=== PATIENT | male | born 1975 | race Hispanic/Latino ===

== ENCOUNTER 2022-06-09 21:17 | Inpatient (IN) | payer MEDICARE ==
[~2022-06-09] VITALS: Ht 152.4 cm; Wt 42.2 kg
[2022-06-10 01:06] LABS: BASOPHILS % (AUTO) 0.5 % (0.0-5.0); EOSINOPHILS % (AUTO) 0.5 % (0.0-8.0); HEMATOCRIT 31.2 % (42-54); MEAN CORPUSCULAR HGB CONC 33.3 g/dL (32.0-36.0); MEAN CORPUSCULAR VOLUME 93.1 fL (79-99); MONOCYTES % (AUTO) 7.9 % (3.0-13.0); NEUTROPHILS % (AUTO) 48.6 % (40.0-77.0); PLATELET COUNT (AUTO) 284 K/uL (130-400); RED BLOOD CELL COUNT(AUTO) 3.35 MIL/uL (4.50-6.20); RED CELL DISTRIBUTION WIDTH 17.4 % (11.0-15.5); WHITE BLOOD COUNT (AUTO) 3.7 K/uL (4.8-10.8)
[2022-06-10 01:15] LABS: POTASSIUM 4.3 mmol/L (3.5-5.1)
[2022-06-10 01:20] LABS: ALBUMIN 2.1 g/dL (3.5-5.0); TOTAL PROTEIN, SERUM 5.8 g/dL (6.0-8.3)
[2022-06-10 01:43] LABS: APPEARANCE,URINE CLEAR (CLEAR); BILIRUBIN,URINE NEGATIVE (NEGATIVE); COLOR,URINE LIGHT-YELLOW (YELLOW); GLUCOSE, URINE (UA) NEGATIVE (NEGATIVE); KETONES,URINE NEGATIVE (NEGATIVE); LEUKOCYTE ESTERASE ,URINE 75 Leu/uL (NEGATIVE); NITRATE,URINE NEGATIVE (NEGATIVE); OCCULT BLOOD,URINE NEGATIVE (NEGATIVE); PH,URINE 7.5 (5.0-8.0); PROTEIN,URINE NEGATIVE (NEGATIVE); UROBILINOGEN,URINE 0.2 mg/dL (0.2-1.0)
[2022-06-10] MEDS ORDERED: AZITHROMYCIN 500MG+NS 250ML IVPB STA (02:20)
[2022-06-10] MEDS ORDERED: CEFTRIAXONE 1G VIAL IVP ONE (02:30)
[2022-06-10] MEDS ORDERED: MORPHINE 4 MG SYG IV PRN (03:00)
[2022-06-10] MEDS ORDERED: ONDANSETRON 4MG INJ IV PRN (03:00)
[2022-06-10] MEDS ORDERED: ACETAMINOPHEN 325 MG TAB PO PRN ×2 (03:00)
[2022-06-10] MEDS: CEFTRIAXONE 1G VIAL IV SCH (03:00)
[2022-06-10] MEDS ORDERED: MORPHINE 2 MG SYG IV PRN (03:00)
[2022-06-10] MEDS ORDERED: GUAIFENESIN-DM 200/20 MG 10 ML PO PRN (03:00)
[2022-06-10 03:21] LABS: % IRON SATURATION 15.8 % (30-44)
[2022-06-10] MEDS ORDERED: CEFTRIAXONE 1G VIAL ONE (03:43)
[2022-06-10] MEDS ORDERED: AZITHROMYCIN 500MG+NS 250ML 250 ML ONE (04:01)
[2022-06-10] MEDS: LACTATED RINGERS 1000ML 1,000 ML IV SCH (04:51)
[2022-06-10] MEDS ORDERED: SODIUM CHLORIDE 3% FOR INHALATION 4 ML/AMP VIAL.NEB IH ONE ×2 (06:50→18:45)
[2022-06-10] MEDS: ALBUTEROL 0.083% 2.5 MG/3 ML INH IH SCH ×3 (06:52→18:37)
[2022-06-10] MEDS: IPRATROPIUM 0.5 MG/2.5 ML INH IH SCH ×3 (06:52→18:37)
[2022-06-10] MEDS ORDERED: 0.9% NACL 500ML IV.SOLN 500 ML IV STA (08:30)
[2022-06-10] MEDS: BALSAM PERU TP SCH ×3 (09:00→20:51)
[2022-06-10] MEDS: CASTOR OIL TP SCH ×3 (09:00→20:51)
[2022-06-10] MEDS ORDERED: FAMOTIDINE 20MG TAB PO SCH (09:00)
[2022-06-10] MEDS ORDERED: FAMOTIDINE 20MG VIAL IV ONE ×2 (10:00→11:05)
[2022-06-10] MEDS ORDERED: ENOXAPARIN SODIUM 30 MG/0.3 ML SQ ONE (11:05)
[2022-06-10] MEDS: ENOXAPARIN SODIUM 30 MG/0.3 ML SQ SCH (11:07)
[2022-06-10] MEDS ORDERED: DEXTROSE 50%-WATER 50 ML DISP.SYRIN IV ONE ×2 (13:00→13:30)
[2022-06-10 15:59] LABS: THYROID STIMULATING HORMONE 4.77 uIU/mL (0.36-3.74)
[2022-06-10] MEDS ORDERED: HONEY 1 APPL/ML TUBE TP SCH (17:30)
[2022-06-10] MEDS ORDERED: IRON SUCROSE COMPLEX 500 MG in 0.9% NACL 250ML 250 ML IV SCH (19:00)
[2022-06-10 20:34] VITALS: BP 162/54
[2022-06-11 00:05] VITALS: BP 114/65
[2022-06-11] MEDS: ALBUTEROL 0.083% 2.5 MG/3 ML INH IH SCH ×5 (00:18→23:18)
[2022-06-11] MEDS: IPRATROPIUM 0.5 MG/2.5 ML INH IH SCH ×5 (00:18→23:18)
[2022-06-11] MEDS: CEFTRIAXONE 1G VIAL IV SCH (03:02)
[2022-06-11] MEDS: LACTATED RINGERS 1000ML 1,000 ML IV SCH (03:02)
[2022-06-11] MEDS: AZITHROMYCIN 500MG+NS 250ML 250 ML IV SCH (03:02)
[2022-06-11 04:15] VITALS: BP 114/60
[2022-06-11 06:03] LABS: BASOPHILS % (AUTO) 0.6 % (0.0-5.0); EOSINOPHILS % (AUTO) 0.4 % (0.0-8.0); HEMATOCRIT 31.7 % (42-54); LYMPHOCYTES % (AUTO) 22.9 % (21.0-51.0); MEAN CORPUSCULAR HEMOGLOBIN 30.5 pg (27.0-33.0); MEAN CORPUSCULAR HGB CONC 32.2 g/dL (32.0-36.0); MEAN CORPUSCULAR VOLUME 94.9 fL (79-99); MONOCYTES % (AUTO) 6.1 % (3.0-13.0); NEUTROPHILS % (AUTO) 69.2 % (40.0-77.0); PLATELET COUNT (AUTO) 293 K/uL (130-400); RED BLOOD CELL COUNT(AUTO) 3.34 MIL/uL (4.50-6.20); RED CELL DISTRIBUTION WIDTH 17.1 % (11.0-15.5); WHITE BLOOD COUNT (AUTO) 5.2 K/uL (4.8-10.8)
[2022-06-11] MEDS: LEVOTHYROXINE 25 MCG TABLET PO SCH (06:04)
[2022-06-11 06:20] LABS: CREATININE 0.8 mg/dL (0.5-1.5); MAGNESIUM 1.9 mg/dL (1.80-2.40); PHOSPHORUS 2.8 mg/dL (2.5-4.9); POTASSIUM 4.1 mmol/L (3.5-5.1)
[2022-06-11 07:20] VITALS: BP 124/89
[2022-06-11] MEDS: HONEY 1 APPL/ML TUBE TP SCH (08:41)
[2022-06-11] MEDS: ENOXAPARIN SODIUM 30 MG/0.3 ML SQ SCH (08:43)
[2022-06-11 11:40] VITALS: BP 103/69
[2022-06-11] MEDS ORDERED: HONE44PA TP (13:42)
[2022-06-11] MEDS ORDERED: DOXY100T2 PO (13:42)
[2022-06-11] MEDS ORDERED: HONEY 1 APPL/ML TUBE TP SCH (16:30)
[2022-06-11] MEDS ORDERED: DEXTROSE 50%-WATER 50 ML DISP.SYRIN IV ONE (18:38)
[2022-06-11] MEDS ORDERED: GLUCAGON 1MG KIT 1 MG ML IM PRN (20:00)
[2022-06-11 20:19] VITALS: BP 110/77
[2022-06-12 00:05] VITALS: BP 122/68
[2022-06-12] MEDS: AZITHROMYCIN 500MG+NS 250ML 250 ML IV SCH (02:14)
[2022-06-12] MEDS: CEFTRIAXONE 1G VIAL IV SCH (02:16)
[2022-06-12] MEDS: LACTATED RINGERS 1000ML 1,000 ML IV SCH (02:16)
[2022-06-12 03:56] VITALS: BP 119/81
[2022-06-12] MEDS: LEVOTHYROXINE 25 MCG TABLET PO SCH (06:30)
[2022-06-12] MEDS: IPRATROPIUM 0.5 MG/2.5 ML INH IH SCH ×4 (06:54→23:21)
[2022-06-12] MEDS: ALBUTEROL 0.083% 2.5 MG/3 ML INH IH SCH ×4 (06:54→23:21)
[2022-06-12 08:00] VITALS: BP 146/76
[2022-06-12] MEDS: ENOXAPARIN SODIUM 30 MG/0.3 ML SQ SCH (08:42)
[2022-06-12] MEDS: HONEY 1 APPL/ML TUBE TP SCH (08:43)
[2022-06-12 12:00] VITALS: BP 120/73
[2022-06-12 16:00] VITALS: BP 114/68
[2022-06-12] MEDS ORDERED: ALBUTEROL 0.042% 1.25MG/3ML IH ONE ×2 (19:02→19:03)
[2022-06-12] MEDS: HYDROXYZINE 25 MG TABLET PO SCH (19:41)
[2022-06-12] MEDS: TRAZODONE HCL 50 MG TAB PO SCH (19:46)
[2022-06-12 20:00] VITALS: BP 105/63
[2022-06-13] VITALS (7 sets, daily range): BP systolic 88–148; BP diastolic 41–90
[2022-06-13] MEDS: LACTATED RINGERS 1000ML 1,000 ML IV SCH (03:00)
[2022-06-13] MEDS: AZITHROMYCIN 500MG+NS 250ML 250 ML IV SCH (03:20)
[2022-06-13] MEDS: CEFTRIAXONE 1G VIAL IV SCH (03:20)
[2022-06-13 04:38] LABS: BASOPHILS % (AUTO) 0.4 % (0.0-5.0); EOSINOPHILS % (AUTO) 0.3 % (0.0-8.0); HEMATOCRIT 28.3 % (42-54); LYMPHOCYTES % (AUTO) 17.5 % (21.0-51.0); MEAN CORPUSCULAR HEMOGLOBIN 31.1 pg (27.0-33.0); MEAN CORPUSCULAR HGB CONC 33.9 g/dL (32.0-36.0); MEAN CORPUSCULAR VOLUME 91.6 fL (79-99); NEUTROPHILS % (AUTO) 76.4 % (40.0-77.0); PLATELET COUNT (AUTO) 278 K/uL (130-400); RED BLOOD CELL COUNT(AUTO) 3.09 MIL/uL (4.50-6.20); RED CELL DISTRIBUTION WIDTH 16.9 % (11.0-15.5); WHITE BLOOD COUNT (AUTO) 7.6 K/uL (4.8-10.8)
[2022-06-13 04:55] LABS: ALBUMIN 2.3 g/dL (3.5-5.0); CREATININE 0.7 mg/dL (0.5-1.5); MAGNESIUM 1.8 mg/dL (1.80-2.40); POTASSIUM 3.6 mmol/L (3.5-5.1); TOTAL PROTEIN, SERUM 5.9 g/dL (6.0-8.3)
[2022-06-13] MEDS: LEVOTHYROXINE 25 MCG TABLET PO SCH (06:03)
[2022-06-13] MEDS: DEXTROSE 50%-WATER 50 ML DISP.SYRIN IV PRN ×2 (06:03→11:30)
[2022-06-13] MEDS: IPRATROPIUM 0.5 MG/2.5 ML INH IH SCH ×4 (06:57→23:10)
[2022-06-13] MEDS: ALBUTEROL 0.083% 2.5 MG/3 ML INH IH SCH ×4 (06:57→23:10)
[2022-06-13] MEDS: HYDROXYZINE 25 MG TABLET PO SCH ×2 (08:52→21:44)
[2022-06-13] MEDS: ENOXAPARIN SODIUM 30 MG/0.3 ML SQ SCH (08:53)
[2022-06-13] MEDS ORDERED: ESLI800T PO (15:27)
[2022-06-13] MEDS ORDERED: ATOR40TA69 PEG (15:27)
[2022-06-13] MEDS ORDERED: LEVE1000 PEG (15:30)
[2022-06-13] MEDS ORDERED: MELA5CAP PEG (15:48)
[2022-06-13] MEDS ORDERED: MONT-39 PEG (15:49)
[2022-06-13] MEDS ORDERED: CLOT15C TP (15:51)
[2022-06-13] MEDS ORDERED: LEVE10006 PEG (15:52)
[2022-06-13] MEDS: **HM**(Melatonin 5 MG PO SCH (19:42)
[2022-06-13] MEDS: ESLICARBAZEPINE ACETATE 800 MG PO SCH (19:42)
[2022-06-13] MEDS: CLOTRIMAZOLE 30 GM CREAM.GM. TP SCH (21:44)
[2022-06-13] MEDS: LEVETIRACETAM 100 MG/ML 5 ML UDCUP PEG SCH (21:44)
[2022-06-13] MEDS: TRAZODONE HCL 50 MG TAB PO SCH (21:44)
[2022-06-13] MEDS: MONTELUKAST SODIUM 10 MG TAB PEG SCH (21:45)
[2022-06-14] MEDS: LACTATED RINGERS 1000ML 1,000 ML IV SCH (02:02)
[2022-06-14] MEDS: AZITHROMYCIN 500MG+NS 250ML 250 ML IV SCH (02:02)
[2022-06-14] MEDS: CEFTRIAXONE 1G VIAL IV SCH (02:02)
[2022-06-14 04:25] VITALS: BP 94/66
[2022-06-14] MEDS: LEVOTHYROXINE 25 MCG TABLET PO SCH (05:13)
[2022-06-14] MEDS: IPRATROPIUM 0.5 MG/2.5 ML INH IH SCH ×4 (06:49→23:41)
[2022-06-14] MEDS: ALBUTEROL 0.083% 2.5 MG/3 ML INH IH SCH ×4 (06:49→23:41)
[2022-06-14 08:00] VITALS: BP 130/80
[2022-06-14] MEDS: ESLICARBAZEPINE ACETATE 800 MG PO SCH ×2 (09:00→21:00)
[2022-06-14] MEDS: ENOXAPARIN SODIUM 30 MG/0.3 ML SQ SCH (10:02)
[2022-06-14] MEDS: ATORVASTATIN 40 MG TABLET PEG SCH (10:02)
[2022-06-14] MEDS: HYDROXYZINE 25 MG TABLET PO SCH ×2 (10:04→21:45)
[2022-06-14] MEDS: LEVETIRACETAM 100 MG/ML 5 ML UDCUP PEG SCH ×2 (10:04→22:31)
[2022-06-14 11:47] VITALS: BP 101/71
[2022-06-14 16:01] VITALS: BP 125/69
[2022-06-14] MEDS ORDERED: LACTULOSE 20 GM/30 ML UDCUP PO ONE (17:00)
[2022-06-14] MEDS: CLOTRIMAZOLE 30 GM CREAM.GM. TP SCH ×2 (17:11→22:31)
[2022-06-14 19:35] VITALS: BP 106/65
[2022-06-14] MEDS: **HM**(Melatonin 5 MG PO SCH (21:00)
[2022-06-14] MEDS: MONTELUKAST SODIUM 10 MG TAB PEG SCH (21:45)
[2022-06-14] MEDS: TRAZODONE HCL 50 MG TAB PO SCH (21:46)
[2022-06-15] VITALS (7 sets, daily range): BP systolic 101–135; BP diastolic 57–77
[2022-06-15] MEDS ORDERED: LACTULOSE 20 GM/30 ML UDCUP PO ONE ×2 (01:00→09:00)
[2022-06-15] MEDS: CEFTRIAXONE 1G VIAL IV SCH (03:52)
[2022-06-15] MEDS: AZITHROMYCIN 500MG+NS 250ML 250 ML IV SCH (03:53)
[2022-06-15] MEDS: LEVOTHYROXINE 25 MCG TABLET PO SCH (06:30)
[2022-06-15] MEDS: ALBUTEROL 0.083% 2.5 MG/3 ML INH IH SCH ×4 (07:33→23:26)
[2022-06-15] MEDS: IPRATROPIUM 0.5 MG/2.5 ML INH IH SCH ×4 (07:33→23:26)
[2022-06-15] MEDS: ESLICARBAZEPINE ACETATE 800 MG PO SCH ×2 (09:00→21:00)
[2022-06-15] MEDS: ENOXAPARIN SODIUM 30 MG/0.3 ML SQ SCH (09:16)
[2022-06-15] MEDS: LEVETIRACETAM 100 MG/ML 5 ML UDCUP PEG SCH ×2 (09:17→22:47)
[2022-06-15] MEDS: HYDROXYZINE 25 MG TABLET PO SCH ×2 (09:17→22:47)
[2022-06-15] MEDS: CLOTRIMAZOLE 30 GM CREAM.GM. TP SCH ×2 (09:18→22:48)
[2022-06-15] MEDS: ATORVASTATIN 40 MG TABLET PEG SCH (09:25)
[2022-06-15] MEDS ORDERED: IRON SUCROSE COMPLEX 500 MG in 0.9%NACL 50ML 50 ML IV SCH (11:30)
[2022-06-15] MEDS: **HM**(Melatonin 5 MG PO SCH (21:00)
[2022-06-15] MEDS: MONTELUKAST SODIUM 10 MG TAB PEG SCH (22:47)
[2022-06-15] MEDS: TRAZODONE HCL 50 MG TAB PO SCH (22:48)
[2022-06-16] MEDS: CEFTRIAXONE 1G VIAL IV SCH (03:03)
[2022-06-16 03:57] VITALS: BP 98/52
[2022-06-16 06:05] LABS: BASOPHILS % (AUTO) 0.6 % (0.0-5.0); EOSINOPHILS % (AUTO) 0.9 % (0.0-8.0); HEMATOCRIT 26.8 % (42-54); LYMPHOCYTES % (AUTO) 27.8 % (21.0-51.0); MEAN CORPUSCULAR HGB CONC 32.8 g/dL (32.0-36.0); MEAN CORPUSCULAR VOLUME 97.5 fL (79-99); MONOCYTES % (AUTO) 5.7 % (3.0-13.0); NEUTROPHILS % (AUTO) 64.5 % (40.0-77.0); PLATELET COUNT (AUTO) 258 K/uL (130-400); RED BLOOD CELL COUNT(AUTO) 2.75 MIL/uL (4.50-6.20); RED CELL DISTRIBUTION WIDTH 18.6 % (11.0-15.5); WHITE BLOOD COUNT (AUTO) 6.6 K/uL (4.8-10.8)
[2022-06-16 06:25] LABS: ALBUMIN 2.2 g/dL (3.5-5.0); CREATININE 0.7 mg/dL (0.5-1.5); MAGNESIUM 1.9 mg/dL (1.80-2.40); POTASSIUM 3.9 mmol/L (3.5-5.1); TOTAL PROTEIN, SERUM 5.6 g/dL (6.0-8.3)
[2022-06-16] MEDS: IPRATROPIUM 0.5 MG/2.5 ML INH IH SCH ×4 (06:37→23:39)
[2022-06-16] MEDS: ALBUTEROL 0.083% 2.5 MG/3 ML INH IH SCH ×4 (06:37→23:39)
[2022-06-16 07:50] VITALS: BP 105/59
[2022-06-16] MEDS: HYDROXYZINE 25 MG TABLET PO SCH ×2 (08:23→20:54)
[2022-06-16] MEDS: ENOXAPARIN SODIUM 30 MG/0.3 ML SQ SCH (08:23)
[2022-06-16] MEDS: ATORVASTATIN 40 MG TABLET PEG SCH (08:23)
[2022-06-16] MEDS: LEVETIRACETAM 100 MG/ML 5 ML UDCUP PEG SCH ×2 (08:23→20:54)
[2022-06-16] MEDS: CLOTRIMAZOLE 30 GM CREAM.GM. TP SCH ×2 (08:24→20:54)
[2022-06-16] MEDS: ESLICARBAZEPINE ACETATE 800 MG PO SCH ×2 (08:25→20:14)
[2022-06-16] MEDS ORDERED: EPOETIN ALFA-EPBX (NON-ESRD) 10,000 UNIT/ML VIAL SQ SCH (08:30)
[2022-06-16 11:50] VITALS: BP 100/57
[2022-06-16 17:30] VITALS: BP 137/78
[2022-06-16 20:00] VITALS: BP 137/72
[2022-06-16] MEDS: **HM**(Melatonin 5 MG PO SCH (20:14)
[2022-06-16] MEDS: TRAZODONE HCL 50 MG TAB PO SCH (20:54)
[2022-06-16] MEDS: MONTELUKAST SODIUM 10 MG TAB PEG SCH (20:54)
[2022-06-17] VITALS: BP 97/67
[2022-06-17] MEDS: CEFTRIAXONE 1G VIAL IV SCH (02:20)
[2022-06-17 04:00] VITALS: BP 116/73
[2022-06-17 05:01] LABS: BASOPHILS % (AUTO) 0.7 % (0.0-5.0); EOSINOPHILS % (AUTO) 2.4 % (0.0-8.0); HEMATOCRIT 26.1 % (42-54); LYMPHOCYTES % (AUTO) 33.3 % (21.0-51.0); MEAN CORPUSCULAR HEMOGLOBIN 31.7 pg (27.0-33.0); MEAN CORPUSCULAR HGB CONC 33.7 g/dL (32.0-36.0); MEAN CORPUSCULAR VOLUME 93.9 fL (79-99); MONOCYTES % (AUTO) 5.6 % (3.0-13.0); NEUTROPHILS % (AUTO) 57.8 % (40.0-77.0); PLATELET COUNT (AUTO) 257 K/uL (130-400); RED BLOOD CELL COUNT(AUTO) 2.78 MIL/uL (4.50-6.20); RED CELL DISTRIBUTION WIDTH 18.4 % (11.0-15.5); WHITE BLOOD COUNT (AUTO) 4.1 K/uL (4.8-10.8)
[2022-06-17 05:20] LABS: ALBUMIN 2.1 g/dL (3.5-5.0); CREATININE 0.6 mg/dL (0.5-1.5); MAGNESIUM 1.8 mg/dL (1.80-2.40); POTASSIUM 4.1 mmol/L (3.5-5.1); TOTAL PROTEIN, SERUM 5.7 g/dL (6.0-8.3)
[2022-06-17] MEDS: LEVOTHYROXINE 25 MCG TABLET PO SCH (06:13)
[2022-06-17] MEDS: DEXTROSE 50%-WATER 50 ML DISP.SYRIN IV PRN (06:40)
[2022-06-17] MEDS: IPRATROPIUM 0.5 MG/2.5 ML INH IH SCH (06:43)
[2022-06-17] MEDS: ALBUTEROL 0.083% 2.5 MG/3 ML INH IH SCH (06:43)
[2022-06-17 07:00] VITALS: BP 124/71
[2022-06-17] MEDS: ESLICARBAZEPINE ACETATE 800 MG PO SCH ×2 (09:00→20:03)
[2022-06-17] MEDS: ATORVASTATIN 40 MG TABLET PEG SCH (09:38)
[2022-06-17] MEDS: LEVETIRACETAM 100 MG/ML 5 ML UDCUP PEG SCH ×2 (09:38→20:03)
[2022-06-17] MEDS: ENOXAPARIN SODIUM 30 MG/0.3 ML SQ SCH (09:38)
[2022-06-17] MEDS: HYDROXYZINE 25 MG TABLET PO SCH ×2 (09:38→20:03)
[2022-06-17] MEDS: CLOTRIMAZOLE 30 GM CREAM.GM. TP SCH ×2 (09:39→20:03)
[2022-06-17 11:00] VITALS: BP 103/61
[2022-06-17 15:00] VITALS: BP 97/60
[2022-06-17] MEDS: TRAZODONE HCL 50 MG TAB PO SCH (20:03)
[2022-06-17] MEDS: MONTELUKAST SODIUM 10 MG TAB PEG SCH (20:03)
[2022-06-17] MEDS: **HM**(Melatonin 5 MG PO SCH (20:03)
[2022-06-17 20:23] VITALS: BP 109/71
[2022-06-18 00:06] VITALS: BP 90/46
[2022-06-18] MEDS: CEFTRIAXONE 1G VIAL IV SCH (03:57)
[2022-06-18 04:04] VITALS: BP 110/60
[2022-06-18] MEDS: DEXTROSE 50%-WATER 50 ML DISP.SYRIN IV PRN (06:05)
[2022-06-18] MEDS: LEVOTHYROXINE 25 MCG TABLET PO SCH (06:05)
[2022-06-18 08:00] VITALS: BP 95/62
[2022-06-18] MEDS: HYDROXYZINE 25 MG TABLET PO SCH (08:40)
[2022-06-18] MEDS: LEVETIRACETAM 100 MG/ML 5 ML UDCUP PEG SCH (08:41)
[2022-06-18] MEDS: ATORVASTATIN 40 MG TABLET PEG SCH (08:41)
[2022-06-18] MEDS: ESLICARBAZEPINE ACETATE 800 MG PO SCH (08:42)
[2022-06-18] MEDS: ENOXAPARIN SODIUM 30 MG/0.3 ML SQ SCH (08:42)
[2022-06-18 12:05] VITALS: BP 89/51
== END 2022-06-18 14:10 | DRG 177 ==
LOC: EDH 21:17 → EDHIP 06-10 02:36 → 4CH 06-10 19:57
PROVIDERS: ADMIT Internal Medicine; ATTEND Internal Medicine
DX: J69.0 Pneumonitis due to inhalation of food and vomit (principal); E43 Unspecified severe protein-calorie malnutrition; R53.2 Functional quadriplegia; N39.0 Urinary tract infection, site not specified; R64 Cachexia; Z68.1 Body mass index [BMI] 19.9 or less, adult; Z20.822 Contact with and (suspected) exposure to COVID-19; J15.9 Unspecified bacterial pneumonia; G40.909 Epilepsy, unspecified, not intractable, without status epilepticus; D70.9 Neutropenia, unspecified; D64.9 Anemia, unspecified; E61.1 Iron deficiency; E78.00 Pure hypercholesterolemia, unspecified; F32.A Depression, unspecified; R13.12 Dysphagia, oropharyngeal phase; Z79.899 Other long term (current) drug therapy; Z93.1 Gastrostomy status; Z91.81 History of falling
CPT/HCPCS: 36415; 70450; 71045; 74176; 80048; 80053; 81001; 82728; 82948; 83540; 83550; 83605; 83735; 84100; 84439; 84443; 84481; 85025; 87040; 87070; 87077; 87088; 87186; 87635; 87804; 93005; 94640; 94664; C9803; G0378; J0456; J0696; J1650; J1756; J3490; J7050; J7070; J7120

== ENCOUNTER 2022-10-06 21:47 | Emergency (ER) | payer MEDICARE ==
[~2022-10-06 21:47] MED LIST: ATOR40TA69 PEG; CLOT15C TP; ESLI800T PO; LEVE10006 PEG; MELA5CAP PEG; MONT-39 PEG
[2022-10-06 21:56] VITALS: BP 150/82
[2022-10-06] MEDS ORDERED: TETANUS/DIPHTHERIA TOXOID [ADULT] 0.5 ML VIAL IM ONE (23:00)
[2022-10-07] MEDS ORDERED: LORAZEPAM 2 MG/ML 1 ML VIAL ONE (00:09)
[2022-10-07] MEDS ORDERED: PENICILLIN G BENZATHINE LA 1.2 MILUNITS/2 ML SYG IM ONE (02:30)
== END 2022-10-07 04:30 | disposition home or self-care (01) ==
LOC: EDH 21:47
DX: S01.01XA Laceration without foreign body of scalp, initial encounter (principal); M19.90 Unspecified osteoarthritis, unspecified site; F32.A Depression, unspecified; K21.9 Gastro-esophageal reflux disease without esophagitis; E78.00 Pure hypercholesterolemia, unspecified; F84.0 Autistic disorder; W07.XXXA Fall from chair, initial encounter; Y93.89 Activity, other specified; Y92.89 Other specified places as the place of occurrence of the external cause; Y99.8 Other external cause status
CPT/HCPCS: 99285; 70450; 72125; 12002; 90714; 96372; 90471; J2060; J0561

== ENCOUNTER 2024-06-17 16:09 | Inpatient (IN) | payer MEDICARE ==
[~2024-06-17] VITALS: Ht 137.2 cm; Wt 39.9 kg
--- NOTE | 2024-06-17 16:26 | ERN ---
ED Note History of Present Illness Stated Complaint: ULCER Time Seen by MD: 16:10 Dictation: PATIENT IS A 48-YEAR-OLD DOWN SYNDROME PATIENT COMING FROM A LOCAL CARE HOME WITH A CAREGIVER. CAREGIVER HAD VERY LITTLE INFORMATION OTHER THAN SOME PAPERWORK FROM THE CARE HOME. I CALLED AND I SPOKE WITH JOHANA NORWOOD RN WHO IS ONLY THERE THURSDAY THROUGH THURSDAY. SHE STATES PATIENT HAS A DECUBITUS ULCER HE HAS HAD TO HIS SACRUM FOR SEVERAL WEEKS, HAS ALREADY BEEN TO [facility] AND WAS DISCHARGED HOME WITH ANTIBIOTICS AND MUPIROCIN. HE THEN SAW HIS PRIMARY CARE DOCTOR YESTERDAY WHO WAS GOING TO REFER HIM TO WOUND CARE HOWEVER DID NOT GET AROUND TO DOING THIS. TODAY THEY DECIDED TO SEND HIM TO [facility] FOR FURTHER EVALUATION HOPEFULLY ADMISSION AND WOUND CARE MANAGEMENT. PATIENT IS NOT ABLE TO PROVIDE ANY HISTORY. PER THE CAREGIVER PATIENT HAS HAD NO FEVER NO CHILLS NO NAUSEA VOMITING. Allergies: Coded Allergies: No Known Drug Allergies (Unverified Allergy, Unknown, 06/10/22) Home Meds Reported Medications Levetiracetam (Levetiracetam) 1,000 Mg Tablet, 1500 MG PEG BID, TAB 06/13/22 Clotrimazole (Lotrimin 1% Cream) 1 Appl/Gm Crm, 1 APPL TP BID, APPL 06/13/22 Montelukast Sodium (Montelukast Sodium) 10 Mg Tablet, 10 MG PEG HS, TAB 06/13/22 Melatonin (Melatonin) 5 Mg Capsule, 5 MG PEG HS, CAP 06/13/22 Atorvastatin Calcium (LIPITOR) 40 Mg Tablet, 40 MG PEG ACBKFST, TAB 06/13/22 Eslicarbazepine Acetate (Aptiom) 800 Mg Tablet, 800 MG PO BID, TAB 06/13/22 Past Medical History Past Medical History: Arthritis, Depression, GERD, High Cholesterol, Prostatitis, Seizure, Other Additional Past Medical Hx: ATAXIA, IDD, DOWN SYN, AUTISM, CATARACTS Surgical History: Other Surgical History Other: EYES RN Note Reviewed/Agreed w/PFSH: Yes Review of System Dictation CONSTITUTIONAL: NEGATIVE EXCEPT FOR HPI HEAD/FACE: NEGATIVE EXCEPT FOR HPI EENT: NEGATIVE EXCEPT FOR HPI RESPIRATORY: NEGATIVE EXCEPT FOR HPI GASTROINTESTINAL/ABDOMINAL: NEGATIVE EXCEPT FOR HPI GENITOURINARY: NEGATIVE EXCEPT FOR HPI MUSCULOSKELETAL: NEGATIVE EXCEPT FOR HPI INTEGUMENTARY: NEGATIVE EXCEPT FOR HPI SACRAL DECUBITUS NEUROLOGICAL/PSYCH: NEGATIVE EXCEPT FOR HPI DOWN SYNDROME, UNABLE TO PROVIDE ANY HISTORY HEMATOLOGIC/LYMPHATIC: NEGATIVE EXCEPT FOR HPI ALL SYSTEMS NEGATIVE, EXCEPT NOTED ABOVE. 13 POINT REVIEW OF SYSTEMS ASSESSED AND ALL NEGATIVE EXCEPT FOR ABOVE. Initial Vital Sign VS Vital Signs Date Time Temp Pulse Resp B/P (MAP) Pulse Ox O2 Delivery O2 Flow Rate FiO2 06/17/24 16:36 97.9 56 18 161/101 96 Room Air 0 Physical Exam Dictation VITAL SIGNS REVIEWED GENERAL APPEARANCE: ALERT, UNABLE TO PROVIDE HISTORY AND IS NONVERBAL. HEAD AND FACE: NON-TRAUMATIC. EYES: PERRL, PINK CONJUNCTIVAS, EYELID NO TRAUMA, ANTERIOR CHAMBER WITH ARCUS SENILIS. EARS: PINNAS INTACT AND NO SIGNS OF TRAUMA OR ERYTHEMA EAR CANALS CLEAR AND NO DISCHARGE TM NO ERYTHEMA NOSE: NO DISCHARGE, NO BLEEDING. OROPHARYNX: MOUTH NORMAL, TONGUE PINK, PHARYNX CLEAR,NO ERYTHEMA, TONSILS NO EXUDATES, NO ABSCESSES NOTED, MUCOUS MEMBRANE MOIST NECK: SUPPLE, NON-TENDER, NO THYROMEGALY, NO MASSES, NO JVD, NO BRUITS BREAST:DEFERRED CHEST:NO TENDERNESS, NO CREPITUS, NO PARADOXICAL MOVEMENT, NO RETRACTIONS LUNGS:CLEAR, WELL-VENTILATED, SYMMETRIC, NO RALES, NO WHEEZING, NO RHONCHI, NO STRIDOR, GOOD BREATH SOUNDS BILATERALLY HEART: REGULAR RATE, REGULAR RHYTHM, NO MURMUR, NO GALLOPS VASCULAR: NO PERIPHERAL EDEMA, ABDOMEN: SOFT, POSITIVE BOWEL SOUNDS, NONDISTENDED, NO GUARDING, NONTENDER, NO REBOUND, NO MASSES NO HEPATOMEGALY, NO SPLENOMEGALY, NO LEOS'S SIGN, NO HERNIAS. PEG TUBE IN PLACE RECTAL: DEFERRED GENITAL: DEFERRED NEUROLOGICAL: PATIENT IS MAXIMUM ASSIST WITH THE ADLS. NONVERBAL MUSCULOSKELETAL: NECK NONTENDER, FULL RANGE OF MOTION, BACK NONTENDER, FULL RANGE OF MOTION, EXTREMITIES: CONTRACTURES NOTED TO BUY LOWER LOWER EXTREMITIES. SKIN: COLOR PINK, DRY, 2 X 3 CM STATES TO DECUBITUS TO LEFT GLUTEUS DRY WOUND BED. CULTURES WERE OBTAINED LYMPHATIC: DEFERRED Results (Laboratory/Radiology) Laboratory/Radiology Laboratory Tests Test 06/17/24 16:58 White Blood Count 3.7 K/uL (4.8-10.8) L Red Blood Count 3.67 MIL/uL (4.50-6.20) L Hemoglobin 11.9 g/dL (14.0-18.0) L Hematocrit 35.0 % (42-54) L Mean Corpuscular Volume 95.4 fL (79-99) Mean Corpuscular Hemoglobin 32.4 pg (27.0-33.0) Mean Corpuscular Hemoglobin Concent 34.0 g/dL (32.0-36.0) Red Cell Distribution Width 15.4 % (11.0-15.5) Platelet Count 290 K/uL (130-400) Mean Platelet Volume 9.9 fL (7.5-10.5) Immature Granulocyte % (Auto) 0.3 % (0-1) Neutrophils (%) (Auto) 30.9 % (40.0-77.0) L Lymphocytes (%) (Auto) 54.9 % (21.0-51.0) H Monocytes (%) (Auto) 9.0 % (3.0-13.0) Eosinophils (%) (Auto) 4.1 % (0.0-8.0) Basophils (%) (Auto) 0.8 % (0.0-5.0) Neutrophils # (Auto) 1.1 K/uL (1.8-7.7) L Lymphocytes # (Auto) 2.0 K/uL (1.0-4.8) Monocytes # (Auto) 0.3 K/uL (0.1-1.0) Eosinophils # (Auto) 0.15 K/uL (0.00-0.70) Basophils # (Auto) 0.03 K/uL (0.00-0.20) Absolute Immature Granulocyte (auto 0.01 K/uL (0-1) Nucleated Red Blood Cells 0.0 % (0.0-0.19) Sodium Level 122 mmol/L (136-145) L Potassium Level 3.5 mmol/L (3.5-5.1) Chloride Level 87 mmol/L (101-111) *L Carbon Dioxide Level 32 mmol/L (21-32) Blood Urea Nitrogen 13 mg/dL (7-18) Creatinine 0.7 mg/dL (0.5-1.3) Glomerular Filtration Rate Calc 113 mL/min (>90) Random Glucose 93 mg/dL (70-105) Lactic Acid Level 1.4 mmol/L (0.8-2.5) Total Calcium 8.8 mg/dL (8.5-10.1) Labs Reviewed?: Yes ED Course ED Course Orders Procedure Category Date Status Time Blood Cult JOVITA 06/17/24 In Process 16:22 Lactic Acid LAB 06/17/24 Complete 16:22 Aerobic Culture JOVITA 06/17/24 In Process 16:22 Cbc With Differential LAB 06/17/24 Complete 16:22 Urinalysis Profile LAB 06/17/24 In Process 16:22 Basic Metabolic Panel LAB 06/17/24 Complete 16:22 0.9%Nacl 1000ml (Ns PHA 06/17/24 Complete 1000ml) 18:30 Straight Cath If No CPOE 06/17/24 Transmitted Void X6hrs 18:10 Admit Orders ADM 06/17/24 Transmitted 18:26 Edm Admit Bridge Order ADM 06/17/24 Transmitted 18:26 Current Medications Medications (Trade) Dose Ordered Sig/Werner Route PRN Reason Start Time Stop Time Status Last Admin Dose Admin Sodium Chloride 1,000 ml @ 0 mls/hr ONCE ONCE IV 06/17/24 18:30 06/17/24 18:31 DC Vital Signs Date Time Temp Pulse Resp B/P (MAP) Pulse Ox O2 Delivery O2 Flow Rate FiO2 06/17/24 16:36 97.9 56 18 161/101 96 Room Air 0 1810/PATIENT IS CHLORIDE OF 87 WITH A SODIUM OF 122. HE WILL BE ADMITTED FOR STAGE II ULCER TO LEFT GLUTEUS, SEVERE DEHYDRATION AND HYPONATREMIA, FAILURE TO THRIVE 1825/SPOKE WITH 1825/SPOKE WITH LEIGHA JONES SEISMIC COMPUTER HOSPITALIST REVIEWED PATIENT'S HISTORY TO INCLUDE DECUBITUS/HYPONATREMIA AND CHLORIDE HE AGREED TO ADMIT PATIENT TO THE HOSPITAL. Medical Decision Making MDM MDM: DIFFERENTIAL DIAGNOSIS: DECUBITUS ULCER/ELECTROLYTE IMBALANCE/DEHYDRATION/UTI/FAILURE THRIVE RATIONALE: TESTS CONSIDERED AND ORDERED SECONDARY TO SHARED DECISION MAKING INCLUDE: LABS, PREVIOUS OUTSIDE RECORDS REVIEWED: OLD ER VISITS. NONE RISK OF COMPLICATION AND/OR MORBIDITY OR MORTALITY OF PATIENT MANAGEMENT: NONE MEDICATIONS-PER MEDICATION RECONCILIATION NEED FOR HOSPITALIZATION: PATIENT DOES MEET CRITERIA FOR HOSPITALIZATION. PATIENT WILL BE ADMITTED FOR SEVERE DEHYDRATION HYPONATREMIA FAILURE TO THRIVE AND DECUBITUS ULCER LEFT GLUTEUS NEED FOR EMERGENCY MAJOR/MINOR SURGERY: NO THERE ARE NO SOCIAL CONCERNS WITH THIS PATIENT. PATIENT LIVES IN A CARE HOME, 100% MAX ASSIST WITH ADLS PRESCRIPTION DRUG MANAGEMENT PRESCRIPTIONS WILL INCLUDE SYMPTOMATIC CARE PATIENT'S PRIOR EXTERNAL MEDICAL RECORDS FROM OTHER ER VISITS WERE REVIEWED BY ME INDICATED. PRIOR TESTING AND RESULTS FROM PREVIOUS VISITS WERE REVIEWED. PRIOR TESTS WERE TAKEN INTO ACCOUNT WITH MEDICAL DECISION MAKING AND RESOURCE UTILIZATION, INDEPENDENT HISTORIAN/HISTORIANS WERE USED TO OBTAIN COMPLETE MEDICAL HISTORY. I INDEPENDENTLY INTERPRETED THE TEST THAT WERE PERFORMED, RESULTS WERE REVIEWED BY ME AND CONSIDERED FINDINGS ON RADIOLOGY IF ORDERED. MEDICAL MANAGEMENT AND EXAMINATION INTERPRETATION DISCUSSIONS WERE HAD BY ME WITH OTHER QUALIFIED HEALTHCARE PROFESSIONALS INDICATED FOR THE PATIENT'S CARE. DX & DISP Disposition: Inpatient Decision to Admit Time: 18:12 Departure Impression: Primary Impression: Stage II pressure ulcer of buttock Additional Impressions: Hyponatremia, Moderate dehydration, Chronic anemia Condition: Stable Referrals: SELF,REFERRAL (PCP) Time of Disposition: 18:12 I have reviewed the case, and I agree with, Diagnosis and Plan I performed a substantive portion of the visit. I have reviewed and personally made and approve the management plan that is documented in the notes by myself with MORIS/resident. I acknowledged full responsibility for the patient's management plan. BERNY BEARD NP Jun 17, 2024 16:25 LISA WYMAN DO Jun 17, 2024 18:34
[2024-06-17 17:13] LABS: BASOPHILS # (AUTO) 0.03 K/uL (0.00-0.20); BASOPHILS % (AUTO) 0.8 % (0.0-5.0); EOSINOPHILS # (AUTO) 0.15 K/uL (0.00-0.70); EOSINOPHILS % (AUTO) 4.1 % (0.0-8.0); IMMATURE GRANULOCYTE ABSOLUTE 0.01 K/uL (0-1); LYMPHOCYTES % (AUTO) 54.9 % (21.0-51.0); MEAN CORPUSCULAR HEMOGLOBIN 32.4 pg (27.0-33.0); MEAN CORPUSCULAR VOLUME 95.4 fL (79-99); MONOCYTES # (AUTO) 0.3 K/uL (0.1-1.0); NEUTROPHILS # (AUTO) 1.1 K/uL (1.8-7.7); NEUTROPHILS % (AUTO) 30.9 % (40.0-77.0); PLATELET COUNT (AUTO) 290 K/uL (130-400); RED BLOOD CELL COUNT(AUTO) 3.67 MIL/uL (4.50-6.20); RED CELL DISTRIBUTION WIDTH 15.4 % (11.0-15.5); WHITE BLOOD COUNT (AUTO) 3.7 K/uL (4.8-10.8)
[2024-06-17 17:20] LABS: CREATININE 0.7 mg/dL (0.5-1.3); POTASSIUM 3.5 mmol/L (3.5-5.1)
--- NOTE | 2024-06-17 18:17 | NUR ---
PT TAKES JEVITY 1.5 CAN THREE X A DAY PER PROVIDER FROM SNF.
[2024-06-17] MEDS: 0.9%NACL 1000ML 1,000 ML IV ONE (18:50)
[2024-06-17 19:14] LABS: APPEARANCE,URINE CLEAR (CLEAR); BILIRUBIN,URINE NEGATIVE (NEGATIVE); COLOR,URINE LIGHT-YELLOW (YELLOW); GLUCOSE, URINE (UA) NEGATIVE (NEGATIVE); KETONES,URINE NEGATIVE (NEGATIVE); LEUKOCYTE ESTERASE ,URINE NEGATIVE Leu/uL (NEGATIVE); NITRATE,URINE NEGATIVE (NEGATIVE); OCCULT BLOOD,URINE NEGATIVE (NEGATIVE); PH,URINE 7.5 (5.0-8.0); PROTEIN,URINE NEGATIVE (NEGATIVE); UROBILINOGEN,URINE 0.2 mg/dL (0.2-1.0)
[2024-06-17 19:19] LABS: ADD UA MICROSCOPIC NO
[2024-06-17] MEDS ORDERED: SENN-180 PO (19:48)
[2024-06-17] MEDS ORDERED: HYDR-3421 PO (19:48)
[2024-06-17] MEDS ORDERED: LINA145C PO (19:48)
[2024-06-17] MEDS ORDERED: MELA5TAB66 PO (19:48)
[2024-06-17] MEDS ORDERED: CLOT15CR23 TP (19:48)
[2024-06-17] MEDS ORDERED: MONT-47 PO (19:48)
[2024-06-17] MEDS ORDERED: TRAZ-185 PO (19:48)
[2024-06-17] MEDS ORDERED: SODI100037 PO (19:48)
[2024-06-17] MEDS ORDERED: TAMS-1 PO (19:48)
[2024-06-17] MEDS ORDERED: FOLI1 PO (19:48)
[2024-06-17] MEDS ORDERED: ESLI400T PO (19:48)
[2024-06-17] MEDS ORDERED: ALEN70TA80 PO (19:48)
[2024-06-17] MEDS ORDERED: PANT40TA54 PO (19:48)
[2024-06-17] MEDS ORDERED: CETI10TA57 PO (19:48)
[2024-06-17] MEDS ORDERED: MUPI15CR12 TP (19:48)
[2024-06-17] MEDS ORDERED: LEVO50CA4 PO (19:48)
[2024-06-17] MEDS ORDERED: ATOR40TA69 PO (19:48)
[2024-06-17] MEDS ORDERED: GLYC2TAB21 PO (19:48)
[2024-06-17] MEDS ORDERED: LEVE100S7 PO (19:48)
[2024-06-17] MEDS ORDERED: CYAN-106 PO (19:48)
[2024-06-17] MEDS ORDERED: CALC-1009 PO (19:48)
--- NOTE | 2024-06-17 20:01 | HP ---
History of Present Illness Reason for Visit: wound History of Present Illness PATIENT IS A 48-YEAR-OLD DOWN SYNDROME PATIENT COMING FROM A LOCAL [facility] WITH A CAREGIVER. CAREGIVER HAD VERY LITTLE INFORMATION OTHER THAN SOME PAPERWORK FROM THE PENITENTIARY. I CALLED AND I SPOKE WITH JOHANA NORWOOD RN WHO IS ONLY THERE THURSDAY THROUGH THURSDAY. SHE STATES PATIENT HAS A DECUBITUS ULCER HE HAS HAD TO HIS SACRUM FOR SEVERAL WEEKS, HAS ALREADY BEEN TO [facility] AND WAS DISCHARGED HOME WITH ANTIBIOTICS AND MUPIROCIN. HE THEN SAW HIS PRIMARY CARE DOCTOR YESTERDAY WHO WAS GOING TO REFER HIM TO WOUND CARE HOWEVER DID NOT GET AROUND TO DOING THIS. TODAY THEY DECIDED TO SEND HIM TO [facility] FOR FURTHER EVALUATION HOPEFULLY ADMISSION AND WOUND CARE MANAGEMENT. PATIENT IS NOT ABLE TO PROVIDE ANY HISTORY. PER THE CAREGIVER PATIENT HAS HAD NO FEVER NO CHILLS NO NAUSEA VOMITING. Past Medical History ADDITIONAL PAST MEDICAL HISTORY: [Unable to obtain] SOCIAL HISTORY: [Negative for smoking, alcohol use, drug use.] SURGICAL HISTORY: [Unable to obtain] Review of Systems General: No Fever, No Chills, No Night Sweats, No Fatigue, No Malaise, No Appetite, No Other HEENT: No Head Aches, No Visual Changes, No Eye Pain, No Ear Pain, No Dysphasia, No Sinus Congestion, No Post Nasal Drip, No Sore Throat, No Other Pulmonary: No Dyspnea, No Cough, No Pleuritic Chest Pain, No Other Cardiovascular: No: Chest Pain, Palpitations, Orthopnea, Paroxysmal Noc. Dyspnea, Edema, Lt Headedness, Other Gastrointestinal: No: Nausea, Vomiting, Abdominal Pain, Diarrhea, Constipation, Melena, Hematochezia, Other Genitourinary: No Dysuria, No Frequency, No Incontinence, No Hematuria, No Retention, No Other Musculoskeletal: No: other, neck pain, shoulder pain, arm pain, back pain, hand pain, leg pain, foot pain Skin: No Urticaria, No Rash; Other (Sacral wound) Neurological: No: Weakness, Numbness, Incoordination, Change in speech, Confusion, Seizures, Other Allergies: Coded Allergies: No Known Drug Allergies (Unverified Allergy, Unknown, 06/10/22) Scheduled Alendronate Sodium (Alendronate Sodium), 1 TAB PO QWEEK, (Reported) Atorvastatin Calcium (Lipitor), 40 MG PEG ACBKFST, (Reported) Atorvastatin Calcium (Lipitor), 1 TAB PO DAILY, (Reported) Calcium Carb & Cit/Vitamin D3 (Calcium + D3 ER Tablet), 1 EACH PO DAILY, (Reported) Cetirizine HCl (Cetirizine HCl), 1 TAB PO DAILY, (Reported) Clotrimazole (Lotrimin 1% Cream), 1 APPL TP BID, (Reported) Clotrimazole (Clotrimazole), 1 APPL TP BID, (Reported) Cyanocobalamin (Vitamin B-12) (Vitamin B12), 1,000 MCG PO DAILY, (Reported) Eslicarbazepine Acetate (Aptiom), 800 MG PO BID, (Reported) Eslicarbazepine Acetate (Aptiom), 1 TAB PO BID, (Reported) Folic Acid (Folvite), 1 TAB PO DAILY, (Reported) Glycopyrrolate (Glycopyrrolate), 1 TAB PO DAILY, (Reported) Hydroxyzine HCl (Hydroxyzine HCl), 1 TAB PO TID, (Reported) Levetiracetam (Levetiracetam), 1,500 MG PEG BID, (Reported) Levetiracetam (Keppra), 15 ML PO BID, (Reported) Levothyroxine Sodium (Levothyroxine), 1 CAP PO DAILY, (Reported) Linaclotide (Linzess), 1 CAP PO DAILY, (Reported) Melatonin (Melatonin), 5 MG PEG HS, (Reported) Melatonin (Melatonin), 5 MG PO HS, (Reported) Montelukast Sodium (Montelukast Sodium), 10 MG PEG HS, (Reported) Montelukast Sodium (Singulair), 10 MG PO HS, (Reported) Mupirocin Calcium (Mupirocin), 1 APPL TP TID, (Reported) Pantoprazole Sodium (Pantoprazole Sodium), 1 TAB PO DAILY, (Reported) Sennosides/Docusate Sodium (Senna-Time S Tablet), 1 EACH PO DAILY, (Reported) Sodium Chloride (Sodium Chloride), 2 TAB PO BID, (Reported) Tamsulosin HCl (Flomax), 0.4 MG PO HS, (Reported) Trazodone HCl (Trazodone HCl), 1 TAB PO HS, (Reported) Exam Vital Signs Vital Signs Date Time Temp Pulse Resp B/P (MAP) Pulse Ox O2 Delivery O2 Flow Rate FiO2 06/17/24 19:33 55 16 161/64 97 Room Air* 0 21 06/17/24 18:44 97.3 General Appearance: Alert HEENT: Atraumatic Respiratory: Clear to auscultation, Normal air movement, NL respiratory effort Cardiovascular: Normal S1, Normal S2, Other (Bradycardia) Abdominal: Normal bowel sounds, Soft, No tenderness, Other (Positive PEG tube) Extremities: No edema Skin: Other (Positive sacral wound) Neuro: Other (Unable to assess) Psych/Mental Status: Other (Unable to assess) Assessment/Plan ASSESSMENT: [ Hyponatremia, POA Sacral wound, POA] PLAN: [ Admit patient to medical floor as inpatient status. Place patient on telemetry monitoring. 0.9% NS at 75 mL/HR. Monitor patient's labs. Consult Wound Care Service for evaluation recommendations. For now wet-to-dry dressings. Consider resuming home medications once they are reconciled. Administer medications per PEG tube. GI prophylaxis, famotidine DVT prophylaxis, Lovenox This document was generated in part using voice recognition software, occasional wrong word or sound alike substitutions may have occurred due to the inherent limitations of voice recognition software. Read the chart carefully and recognize using context, where the substitutions have occurred. Although every effort was made to edit the content, animal park code enforcement officer and typing errors may occur ADDENDUM: ATTENDING PHYSICIAN ATTESTATION: I have seen and discussed this patient with the midlevel and I agree with their plan. See my addendum for updates to the medical plan MD KAREN Dixon JOE D ACID MIXER Jun 17, 2024 20:01 CAILIN KILLIAN MD Jun 18, 2024 12:25
[2024-06-17] MEDS ORDERED: hydrALAZine 20MG/ML VIAL IV PRN (20:30)
[2024-06-17] MEDS ORDERED: ondanSETRON 4MG INJ IV PRN (20:30)
[2024-06-17] MEDS ORDERED: acetaMINOPHEN 325 MG TAB PO PRN (20:30)
[2024-06-17] MEDS ORDERED: morPHINE 2 MG SYG IVP PRN (21:00)
[2024-06-17] MEDS: 0.9%NACL 1000ML 1,000 ML IV SCH (21:00)
[2024-06-17 21:13] LABS: CREATININE,URINE RANDOM 18.33 mg/dL (30-135)
[2024-06-17 21:15] VITALS: BP 164/92; PULSE 57; RESP 20; TEMP 97.5; O2SAT 96
[2024-06-17] MEDS: FAMOTIDINE 20MG TAB PO SCH (23:08)
[2024-06-17] MEDS: leveTIRACEtam 100 MG/ML 5 ML UDCUP PO SCH (23:29)
[2024-06-18] VITALS (7 sets, daily range): BP systolic 127–155; BP diastolic 72–87; PULSE 60–79; RESP 16–20; TEMP 97.2–98.1; O2SAT 96–98
[2024-06-18 05:18] LABS: BASOPHILS # (AUTO) 0.03 K/uL (0.00-0.20); BASOPHILS % (AUTO) 0.8 % (0.0-5.0); EOSINOPHILS % (AUTO) 2.7 % (0.0-8.0); HEMATOCRIT 34.2 % (42-54); IMMATURE GRANULOCYTE ABSOLUTE 0.01 K/uL (0-1); LYMPHOCYTES # (AUTO) 1.7 K/uL (1.0-4.8); MEAN CORPUSCULAR HEMOGLOBIN 32.5 pg (27.0-33.0); MEAN CORPUSCULAR HGB CONC 34.8 g/dL (32.0-36.0); MEAN CORPUSCULAR VOLUME 93.4 fL (79-99); MONOCYTES # (AUTO) 0.3 K/uL (0.1-1.0); NEUTROPHILS # (AUTO) 1.5 K/uL (1.8-7.7); NEUTROPHILS % (AUTO) 41.2 % (40.0-77.0); PLATELET COUNT (AUTO) 301 K/uL (130-400); RED BLOOD CELL COUNT(AUTO) 3.66 MIL/uL (4.50-6.20); RED CELL DISTRIBUTION WIDTH 15.1 % (11.0-15.5); WHITE BLOOD COUNT (AUTO) 3.7 K/uL (4.8-10.8)
[2024-06-18 05:37] LABS: CREATININE 0.6 mg/dL (0.5-1.3); PHOSPHORUS 3.9 mg/dL (2.5-4.9); POTASSIUM 3.9 mmol/L (3.5-5.1)
--- NOTE | 2024-06-18 06:19 | NUR ---
low bs bs 69, apple juice with 1 teaspoon sugar given via gt, flushed, tolerated well Addendum: 06/18/24 at 0620 by AMBER BRANHAM RN RN Amended: Links added.
[2024-06-18] MEDS: (Linaclotide (Linzess) 1 CAP) PO SCH (09:00)
[2024-06-18] MEDS: (Calcium Carb & Cit/Vitamin D3 (Calcium + D3 ER Tablet) PO SCH (09:00)
[2024-06-18] MEDS: ceTIRIzine HCL 5 MG TABLET PO SCH (09:04)
[2024-06-18] MEDS: FOLic ACID 1 MG TABLET PO SCH (09:04)
[2024-06-18] MEDS: atorVAStatin 40 MG TABLET PO SCH (09:04)
[2024-06-18] MEDS: hydrOXYzine 25 MG TABLET PO SCH (09:06)
[2024-06-18] MEDS: MUPIROCIN OINTMENT 22 GM TUBE TP SCH (10:06)
--- NOTE | 2024-06-18 12:19 | PN ---
[facility] PROGRESS NOTE Date of Service: Jun 18, 2024 Time of Service: 12:11 SUBJECTIVE: 06/18 Pt seen at bedside, no acute events overnight. He is unable to participate in the medical interview as he is non-verbal. Continue with antibiotics and fluids. Wound care pending, will follow up with cultures. REVIEW OF SYSTEMS CONSTITUTIONAL: Denies fevers, chills, or night sweats. No unintentional weight loss reported. NEUROLOGICAL: Denies headache, amaurosis fugax, motor weakness, sensory deficit, vertigo/spinning sensation, gait abnormalities, or tremors. ENT: No hearing loss, otalgia, otorrhea, rhinitis, rhinorrhea, hoarseness, or sore throat. CARDIOVASCULAR: Denies any exertional angina, dyspnea on exertion, orthopnea, paroxysmal nocturnal dyspnea, palpitations, life-threatening arrhythmias, claudication. PULMONARY: Denies any shortness of breath, cough, phlegm/sputum, hemoptysis, pleuritic chest pain. SLEEP: Denies morning headaches, daytime somnolence or napping. Denies difficulty falling asleep, staying asleep, waking from sleep. Denies knowledge of snoring. GASTROINTESTINAL: Denies any type of dysphagia to either liquids or solids. Denies nausea, vomiting, pyrosis, early satiety, abdominal pain, diarrhea, constipation, or changes in stool consistency or caliber. Denies coffee-ground emesis, hematemesis, hematochezia, or melanotic stools. GENITOURINARY: Denies frequency, urgency, nocturia, hematuria or incontinence (Storage/Irritative symptoms.) Low urinary stream, straining to void, urinary intermittency or hesitancy, splitting of the voiding stream, terminal dribbling. ENDOCRINOLOGIC: Denies polyuria, polydipsia, polyphagia or heat/cold intolerances. HEMATOLOGIC: Denies thrombophilia/previous clots, or coagulopathy/bleeding diso rders. ONCOLOGIC: Denies personal history of malignancy. DERMATOLOGIC: Denies rashes or pruritus. PSYCHIATRIC: Denies any suicidal or homicidal ideation. Denies hallucinations. PHYSICAL EXAM GENERAL APPEARANCE: The patient is awake, alert, and oriented, in no acute cardiopulmonary distress. NEUROLOGICAL: Cranial nerves II-XII grossly intact. Motor is 5/5 in bilateral upper and lower extremities proximal to distal. No sensory deficits. HEENT: Face is symmetric. Pupils are equal and reactive. Extraocular movements are intact. NECK: Supple. No JVD. No thyromegaly. No submental, submandibular, pre- /postauricular, occipital or supraclavicular lymphadenopathy. CHEST: Normal chest expansion. No Telemetry. LUNGS: Absence of any rales, rhonchi or any wheezing. CARDIOVASCULAR: Regular. S1 and S2 normal. No appreciable rubs, murmurs or gallops. ABDOMEN: Soft, nontender, and nondistended. There is no rebound, voluntary guarding, or rigidity. : Deferred. No Daniels. EXTREMITIES: Non-edematous and not cyanotic. No clubbing. Good capillary r efill. SKIN: No skin breakdown. Vital Signs (last 8hr) Date Time Temp Pulse Resp B/P (MAP) Pulse Ox O2 Delivery O2 Flow Rate FiO2 06/18/24 08:00 98 Room Air* 0 21 06/18/24 08:00 97.3 70 16 141/76 98 Room Air 21 LABS: Laboratory: Test 06/18/24 11:49 06/18/24 04:54 06/17/24 18:14 06/17/24 16:58 Range/Units Whole Blood Glucose 90 70-110 MG/DL White Blood Count 3.7 L 4.8-10.8 K/uL Red Blood Count 3.66 L 4.50-6.20 MIL/uL Hemoglobin 11.9 L 14.0-18.0 g/dL Hematocrit 34.2 L 42-54 % Mean Corpuscular Volume 93.4 79-99 fL Mean Corpuscular Hemoglobin 32.5 27.0-33.0 pg Mean Corpuscular Hemoglobin Concent 34.8 32.0-36.0 g/dL Red Cell Distribution Width 15.1 11.0-15.5 % Platelet Count 301 130-400 K/uL Mean Platelet Volume 10.0 7.5-10.5 fL Immature Granulocyte % (Auto) 0.3 0-1 % Neutrophils (%) (Auto) 41.2 40.0-77.0 % Lymphocytes (%) (Auto) 46.0 21.0-51.0 % Monocytes (%) (Auto) 9.0 3.0-13.0 % Eosinophils (%) (Auto) 2.7 0.0-8.0 % Basophils (%) (Auto) 0.8 0.0-5.0 % Neutrophils # (Auto) 1.5 L 1.8-7.7 K/uL Lymphocytes # (Auto) 1.7 1.0-4.8 K/uL Monocytes # (Auto) 0.3 0.1-1.0 K/uL Eosinophils # (Auto) 0.10 0.00-0.70 K/uL Basophils # (Auto) 0.03 0.00-0.20 K/uL Absolute Immature Granulocyte (auto 0.01 0-1 K/uL Nucleated Red Blood Cells 0.0 0.0-0.19 % Sodium Level 125 L 136-145 mmol/L Potassium Level 3.9 3.5-5.1 mmol/L Chloride Level 92 L 101-111 mmol/L Carbon Dioxide Level 30 21-32 mmol/L Blood Urea Nitrogen 11 7-18 mg/dL Creatinine 0.6 0.5-1.3 mg/dL Glomerular Filtration Rate Calc 118 >90 mL/min Random Glucose 63 L 70-105 mg/dL Total Calcium 8.5 8.5-10.1 mg/dL Phosphorus Level 3.9 2.5-4.9 mg/dL Magnesium Level 2.00 1.80-2.40 mg/dL Urine Color LIGHT-YELLOW YELLOW Urine Appearance CLEAR CLEAR Urine pH 7.5 5.0-8.0 Urine Specific [place] 1.007 1.001-1.031 Urine Protein NEGATIVE NEGATIVE mg/dL Urine Glucose (UA) NEGATIVE NEGATIVE mg/dL Urine Ketones NEGATIVE NEGATIVE mg/dL Urine Occult Blood NEGATIVE NEGATIVE Urine Nitrate NEGATIVE NEGATIVE Urine Bilirubin NEGATIVE NEGATIVE mg/dL Urine Urobilinogen 0.2 0.2-1.0 mg/dL Urine Leukocyte Esterase NEGATIVE NEGATIVE Jerry/uL Urine Osmolality 273 50-1200 mOsm/kg Urine Random Creatinine 18.33 L 30-135 mg/dL Urine Random Sodium 70 40-220 mmol/l Lactic Acid Level 1.4 0.8-2.5 mmol/L Current Medications Medications (Trade) Dose Ordered Sig/Werner Route PRN Reason Start Time Stop Time Status Last Admin Dose Admin Acetaminophen (TYLenol 325MG TAB) 650 mg Q6H PRN PO TEMPERATURE GREATER THAN 101.5 06/17/24 20:30 07/17/24 20:29 Alendronate Sodium (Fosamax 35mg Tab) 70 mg QWEEK@0630 PO 06/25/24 06:30 07/25/24 06:29 Atorvastatin Calcium (LIPItor 40MG) 40 mg DAILY PO 06/18/24 09:00 07/18/24 08:59 06/18/24 09:04 40 MG Cetirizine HCl (ZYRtec 5 MG TABLET) 10 mg DAILY PO 06/18/24 09:00 07/18/24 08:59 06/18/24 09:04 10 MG Famotidine (Pepcid 20mg Tab) 20 mg DAILY PO 06/17/24 21:00 07/17/24 20:59 06/18/24 09:04 20 MG Folic Acid (FOLic ACID 1 MG TABLET) 1 mg DAILY PO 06/18/24 09:00 07/18/24 08:59 06/18/24 09:04 1 MG Home Med (Home Medication) (Calcium Carb & Cit/ Vitamin... DAILY PO 06/18/24 09:00 07/18/24 08:59 Home Med (Home Medication) (Eslicarbazepine Acetate (Aptiom) 1 TAB) BID PO 06/18/24 09:00 07/18/24 08:59 Home Med (Home Medication) (Glycopyrrolate 1 TAB) DAILY PO 06/18/24 09:00 07/18/24 08:59 Home Med (Home Medication) (Linaclotide (Linzess) 1 CAP) DAILY PO 06/18/24 09:00 07/18/24 08:59 Hydralazine HCl (APRESOLine 20MG INJ) 10 mg Q6H PRN IV For:SBP above 160;DBP above 90 06/17/24 20:30 07/17/24 20:29 Hydroxyzine HCl (ATArax 25MG TAB) 25 mg TID PO 06/18/24 09:00 07/18/24 08:59 06/18/24 09:06 25 MG Levetiracetam (kepPRA SOLN 100 MG/ML 5 ML UDCUP) 1,500 mg BID PO 06/17/24 23:30 07/17/24 23:29 06/18/24 09:04 1,500 MG Levothyroxine Sodium (SYNTHroid 50MCG TAB) 50 mcg SYN PO 06/19/24 06:30 07/19/24 06:29 Melatonin (Melatonin) 5 mg HS PO 06/18/24 21:00 07/18/24 20:59 Montelukast Sodium (SinguLAIR) 10 mg HS PO 06/18/24 21:00 07/18/24 20:59 Morphine Sulfate (morPHINE 2MG SYG) 2 mg Q4H PRN IVP SEVERE PAIN (7-10) 06/17/24 21:00 06/24/24 20:59 Mupirocin (Bactroban Oint) TID TP 06/18/24 09:00 07/18/24 08:59 06/18/24 10:06 1 APPL Ondansetron HCl (zoFRAN 4MG INJ) 4 mg Q6H PRN IV NAUSEA/VOMITING 06/17/24 20:30 07/17/24 20:29 Sodium Chloride 1,000 ml @ 75 mls/hr [id number] IV 06/17/24 20:30 07/17/24 20:29 06/17/24 21:00 75 MLS/HR Tamsulosin HCl (FloMAX) 0.4 mg HS PO 06/18/24 21:00 07/18/24 20:59 Trazodone HCl (DesyREL/OlepTRO) 50 mg HS PO 06/18/24 21:00 07/18/24 20:59 DIAGNOSTICS / RADIOLOGY: [ ] ASSESSMENT: Hyponatremia, POA Sacral wound, POA Hypothyroidism, POA Seizure disorder, POA Dysphagia s/p PEG tube placement, POA Down's Syndrome, POA PLAN: - Continue levothyroxine 50mcg q24h - Continue cetirizine 50mg q24h - Continue keppra 1500mg BID - Continue NS @ 75 cc/hr - Follow up on cultures - Continue tube feeds - All meds via PEG tube - Wound care consulted, appreciate recommendations Disposition: Pending wound care, cultures, improvement in clinical status CAILIN KILLIAN MD Jun 18, 2024 12:19
--- NOTE | 2024-06-18 16:13 | NUR ---
UNABLE TO REACH EMERGENCY CONTACT SW called Nory Gavin but mailbox was full. SW also called phone number on demographic sheet - but message states that prescriber is not in service. Patient's nurse states there are no other phone numbers listed for patient. Patient unable to provide information.
[2024-06-18] MEDS: MELATONIN 5 MG TABLET PO SCH (19:59)
[2024-06-18] MEDS: trAZOdone HCL 50 MG TAB PO SCH (19:59)
[2024-06-18] MEDS: monteLUKAST sodIUM 10 MG TAB PO SCH (19:59)
[2024-06-18] MEDS: tamSULOsin HCL 0.4 MG CAP.ER.24H PO SCH (19:59)
[2024-06-19] VITALS (8 sets, daily range): BP systolic 103–136; BP diastolic 46–85; PULSE 54–67; RESP 16–20; TEMP 97.6–98.3; O2SAT 94–96
[2024-06-19 05:24] LABS: BASOPHILS # (AUTO) 0.05 K/uL (0.00-0.20); BASOPHILS % (AUTO) 1.1 % (0.0-5.0); EOSINOPHILS # (AUTO) 0.11 K/uL (0.00-0.70); EOSINOPHILS % (AUTO) 2.4 % (0.0-8.0); IMMATURE GRANULOCYTE ABSOLUTE 0.01 K/uL (0-1); LYMPHOCYTES # (AUTO) 1.5 K/uL (1.0-4.8); LYMPHOCYTES % (AUTO) 31.7 % (21.0-51.0); MEAN CORPUSCULAR HEMOGLOBIN 32.1 pg (27.0-33.0); MEAN CORPUSCULAR HGB CONC 34.4 g/dL (32.0-36.0); MEAN CORPUSCULAR VOLUME 93.4 fL (79-99); MONOCYTES # (AUTO) 0.5 K/uL (0.1-1.0); MONOCYTES % (AUTO) 9.7 % (3.0-13.0); NEUTROPHILS # (AUTO) 2.5 K/uL (1.8-7.7); NEUTROPHILS % (AUTO) 54.9 % (40.0-77.0); PLATELET COUNT (AUTO) 299 K/uL (130-400); RED BLOOD CELL COUNT(AUTO) 3.64 MIL/uL (4.50-6.20); RED CELL DISTRIBUTION WIDTH 15.3 % (11.0-15.5); WHITE BLOOD COUNT (AUTO) 4.6 K/uL (4.8-10.8)
[2024-06-19 05:32] LABS: CREATININE 0.8 mg/dL (0.5-1.3); MAGNESIUM 1.9 mg/dL (1.80-2.40); PHOSPHORUS 4.3 mg/dL (2.5-4.9); POTASSIUM 4.1 mmol/L (3.5-5.1)
[2024-06-19] MEDS: levoTHYROxine 50 MCG TABLET PO SCH (05:34)
[2024-06-19] MEDS ORDERED: SODIUM CHLORIDE 1,000 MG TAB PO SCH (09:00)
--- NOTE | 2024-06-19 13:52 | PN ---
[facility] PROGRESS NOTE Date of Service: Jun 19, 2024 Time of Service: 13:42 SUBJECTIVE: 06/18 Pt seen at bedside, no acute events overnight. He is unable to participate in the medical interview as he is non-verbal. Continue with antibiotics and fluids. Wound care pending, will follow up with cultures. 06/19 Pt seen at bedside, no acute events overnight. Sodium improving from 125 up to 127. If sodium doesn't continue to improve appreciably would recommend adjusting free water flushes. Remainder of his labs relatively unremarkable. Sacral wound cultures still pending, will follow up. Continue antibiotics REVIEW OF SYSTEMS 12 point ROS negative unless noted in HPI PHYSICAL EXAM GENERAL APPEARANCE: The patient is awake, alert, and oriented, in no acute cardiopulmonary distress. NEUROLOGICAL: Cranial nerves II-XII grossly intact. Motor is 5/5 in bilateral upper and lower extremities proximal to distal. No sensory deficits. HEENT: Face is symmetric. Pupils are equal and reactive. Extraocular movements are intact. NECK: Supple. No JVD. No thyromegaly. No submental, submandibular, pre- /postauricular, occipital or supraclavicular lymphadenopathy. CHEST: Normal chest expansion. No Telemetry. LUNGS: Absence of any rales, rhonchi or any wheezing. CARDIOVASCULAR: Regular. S1 and S2 normal. No appreciable rubs, murmurs or ga llops. ABDOMEN: Soft, nontender, and nondistended. There is no rebound, voluntary guarding, or rigidity. : Deferred. No Daniels. EXTREMITIES: Non-edematous and not cyanotic. No clubbing. Good capillary refill. SKIN: No skin breakdown. Vital Signs (last 8hr) Date Time Temp Pulse Resp B/P (MAP) Pulse Ox O2 Delivery O2 Flow Rate FiO2 06/19/24 11:54 98.2 67 16 123/75 95 Room Air 06/19/24 08:17 97.5 57 16 136/85 Room Air 06/19/24 08:00 94 Room Air* 0 21 LABS: Laboratory: Test 06/19/24 11:27 06/19/24 04:27 06/17/24 18:14 06/17/24 16:58 Range/Units Whole Blood Glucose 119 H 70-110 MG/DL White Blood Count 4.6 L 4.8-10.8 K/uL Red Blood Count 3.64 L 4.50-6.20 MIL/uL Hemoglobin 11.7 L 14.0-18.0 g/dL Hematocrit 34.0 L 42-54 % Mean Corpuscular Volume 93.4 79-99 fL Mean Corpuscular Hemoglobin 32.1 27.0-33.0 pg Mean Corpuscular Hemoglobin Concent 34.4 32.0-36.0 g/dL Red Cell Distribution Width 15.3 11.0-15.5 % Platelet Count 299 130-400 K/uL Mean Platelet Volume 10.1 7.5-10.5 fL Immature Granulocyte % (Auto) 0.2 0-1 % Neutrophils (%) (Auto) 54.9 40.0-77.0 % Lymphocytes (%) (Auto) 31.7 21.0-51.0 % Monocytes (%) (Auto) 9.7 3.0-13.0 % Eosinophils (%) (Auto) 2.4 0.0-8.0 % Basophils (%) (Auto) 1.1 0.0-5.0 % Neutrophils # (Auto) 2.5 1.8-7.7 K/uL Lymphocytes # (Auto) 1.5 1.0-4.8 K/uL Monocytes # (Auto) 0.5 0.1-1.0 K/uL Eosinophils # (Auto) 0.11 0.00-0.70 K/uL Basophils # (Auto) 0.05 0.00-0.20 K/uL Absolute Immature Granulocyte (auto 0.01 0-1 K/uL Nucleated Red Blood Cells 0.0 0.0-0.19 % Sodium Level 127 L 136-145 mmol/L Potassium Level 4.1 3.5-5.1 mmol/L Chloride Level 93 L 101-111 mmol/L Carbon Dioxide Level 30 21-32 mmol/L Blood Urea Nitrogen 11 7-18 mg/dL Creatinine 0.8 0.5-1.3 mg/dL Glomerular Filtration Rate Calc 108 >90 mL/min Random Glucose 117 #H 70-105 mg/dL Total Calcium 8.3 L 8.5-10.1 mg/dL Phosphorus Level 4.3 2.5-4.9 mg/dL Magnesium Level 1.90 1.80-2.40 mg/dL Urine Color LIGHT-YELLOW YELLOW Urine Appearance CLEAR CLEAR Urine pH 7.5 5.0-8.0 Urine Specific [place] 1.007 1.001-1.031 Urine Protein NEGATIVE NEGATIVE mg/dL Urine Glucose (UA) NEGATIVE NEGATIVE mg/dL Urine Ketones NEGATIVE NEGATIVE mg/dL Urine Occult Blood NEGATIVE NEGATIVE Urine Nitrate NEGATIVE NEGATIVE Urine Bilirubin NEGATIVE NEGATIVE mg/dL Urine Urobilinogen 0.2 0.2-1.0 mg/dL Urine Leukocyte Esterase NEGATIVE NEGATIVE Jerry/uL Urine Osmolality 273 50-1200 mOsm/kg Urine Random Creatinine 18.33 L 30-135 mg/dL Urine Random Sodium 70 40-220 mmol/l Lactic Acid Level 1.4 0.8-2.5 mmol/L Current Medications Medications (Trade) Dose Ordered Sig/Werner Route PRN Reason Start Time Stop Time Status Last Admin Dose Admin Acetaminophen (TYLenol 325MG TAB) 650 mg Q6H PRN PO TEMPERATURE GREATER THAN 101.5 06/17/24 20:30 07/17/24 20:29 Alendronate Sodium (Fosamax 35mg Tab) 70 mg QWEEK@0630 PO 06/25/24 06:30 07/25/24 06:29 Atorvastatin Calcium (LIPItor 40MG) 40 mg DAILY PO 06/18/24 09:00 07/18/24 08:59 06/19/24 08:29 40 MG Cetirizine HCl (ZYRtec 5 MG TABLET) 10 mg DAILY PO 06/18/24 09:00 07/18/24 08:59 06/19/24 08:28 10 MG Famotidine (Pepcid 20mg Tab) 20 mg DAILY PO 06/17/24 21:00 07/17/24 20:59 06/19/24 08:28 20 MG Folic Acid (FOLic ACID 1 MG TABLET) 1 mg DAILY PO 06/18/24 09:00 07/18/24 08:59 06/19/24 08:28 1 MG Home Med (Home Medication) (Calcium Carb & Cit/ Vitamin... DAILY PO 06/18/24 09:00 07/18/24 08:59 Home Med (Home Medication) (Eslicarbazepine Acetate (Aptiom) 1 TAB) BID PO 06/18/24 09:00 07/18/24 08:59 Home Med (Home Medication) (Glycopyrrolate 1 TAB) DAILY PO 06/18/24 09:00 07/18/24 08:59 Home Med (Home Medication) (Linaclotide (Linzess) 1 CAP) DAILY PO 06/18/24 09:00 07/18/24 08:59 Hydralazine HCl (APRESOLine 20MG INJ) 10 mg Q6H PRN IV For:SBP above 160;DBP above 90 06/17/24 20:30 07/17/24 20:29 Hydroxyzine HCl (ATArax 25MG TAB) 25 mg TID PO 06/18/24 09:00 07/18/24 08:59 06/19/24 08:28 25 MG Levetiracetam (kepPRA SOLN 100 MG/ML 5 ML UDCUP) 1,500 mg BID PO 06/17/24 23:30 07/17/24 23:29 06/19/24 08:28 1,500 MG Levothyroxine Sodium (SYNTHroid 50MCG TAB) 50 mcg SYN PO 06/19/24 06:30 07/19/24 06:29 06/19/24 05:34 50 MCG Melatonin (Melatonin) 5 mg HS PO 06/18/24 21:00 07/18/24 20:59 06/18/24 19:59 5 MG Montelukast Sodium (SinguLAIR) 10 mg HS PO 06/18/24 21:00 07/18/24 20:59 06/18/24 19:59 10 MG Morphine Sulfate (morPHINE 2MG SYG) 2 mg Q4H PRN IVP SEVERE PAIN (7-10) 06/17/24 21:00 06/24/24 20:59 Mupirocin (Bactroban Oint) TID TP 06/18/24 09:00 07/18/24 08:59 06/19/24 08:29 1 APPL Ondansetron HCl (zoFRAN 4MG INJ) 4 mg Q6H PRN IV NAUSEA/VOMITING 06/17/24 20:30 07/17/24 20:29 Sodium Chloride 1,000 ml @ 75 mls/hr [id number] IV 06/17/24 20:30 06/19/24 07:38 DC 06/18/24 23:44 75 MLS/HR Sodium Chloride (Sodium Chloride) 1,000 mg BID PO 06/19/24 09:00 06/19/24 07:39 DC Tamsulosin HCl (FloMAX) 0.4 mg HS PO 06/18/24 21:00 07/18/24 20:59 06/18/24 19:59 0.4 MG Trazodone HCl (DesyREL/OlepTRO) 50 mg HS PO 06/18/24 21:00 07/18/24 20:59 06/18/24 19:59 50 MG DIAGNOSTICS / RADIOLOGY: [ ] ASSESSMENT: Hyponatremia, POA Sacral wound, POA Hypothyroidism, POA Seizure disorder, POA Dysphagia s/p PEG tube placement, POA Down's Syndrome, POA PLAN: - Continue levothyroxine 50mcg q24h - Continue cetirizine 50mg q24h - Continue keppra 1500mg BID - Continue NS @ 75 cc/hr - Hold salt tabs, adjust sodium levels by changing free water flushes - Follow up on cultures - Continue tube feeds - All meds via PEG tube - Wound care consulted, appreciate recommendations Disposition: Pending wound care, cultures, improvement in clinical status CAILIN KILLIAN MD Jun 19, 2024 13:52
--- NOTE | 2024-06-19 14:37 | NUR ---
DC PLAN PATIENT FROM [facility] CHECKED CHART NO NAME OF [facility]. CALLED NUMBERS NO ANSWERS. ASKED NURSE IF SEES SOMEONE IN ROOM PLEASE ASK FOR WORKING NUMBER. CHECKED ONLINE TO SEE IF A [facility] CAME UP WITH THAT ADDRESS NO INFO. Addendum: 06/19/24 at 1440 by LILIANA JOHNSTON RN CM Amended: Links added.
[2024-06-19] MEDS: doCUSate NA 100MG/10ML UDCUP PO ONE (19:42)
[2024-06-20] VITALS (7 sets, daily range): BP systolic 104–158; BP diastolic 54–85; PULSE 65–85; RESP 18–19; TEMP 97.7–98.8; O2SAT 95–97
[2024-06-20 04:24] LABS: BASOPHILS # (AUTO) 0.05 K/uL (0.00-0.20); BASOPHILS % (AUTO) 0.7 % (0.0-5.0); EOSINOPHILS # (AUTO) 0.07 K/uL (0.00-0.70); HEMATOCRIT 32.4 % (42-54); IMMATURE GRANULOCYTE ABSOLUTE 0.02 K/uL (0-1); LYMPHOCYTES # (AUTO) 1.9 K/uL (1.0-4.8); LYMPHOCYTES % (AUTO) 25.6 % (21.0-51.0); MEAN CORPUSCULAR HEMOGLOBIN 32.8 pg (27.0-33.0); MEAN CORPUSCULAR HGB CONC 34.9 g/dL (32.0-36.0); MEAN CORPUSCULAR VOLUME 94.2 fL (79-99); MONOCYTES # (AUTO) 0.5 K/uL (0.1-1.0); MONOCYTES % (AUTO) 7.4 % (3.0-13.0); NEUTROPHILS # (AUTO) 4.7 K/uL (1.8-7.7); PLATELET COUNT (AUTO) 313 K/uL (130-400); RED BLOOD CELL COUNT(AUTO) 3.44 MIL/uL (4.50-6.20); RED CELL DISTRIBUTION WIDTH 15.3 % (11.0-15.5); WHITE BLOOD COUNT (AUTO) 7.3 K/uL (4.8-10.8)
[2024-06-20 04:46] LABS: CREATININE 0.8 mg/dL (0.5-1.3); POTASSIUM 4.5 mmol/L (3.5-5.1)
--- NOTE | 2024-06-20 15:04 | NUR ---
[facility] Consult: Patient assessed by wound healing team. See wound assessment. Assessment and recommendations provided to primary nurse. Education provided. Addendum: 06/21/24 at 1044 by HERMILO BELL RN RN/ Amended: Links added.
--- NOTE | 2024-06-20 15:14 | PN ---
[facility] PROGRESS NOTE Date of Service: Jun 20, 2024 Time of Service: 15:12 SUBJECTIVE: 06/18 Pt seen at bedside, no acute events overnight. He is unable to participate in the medical interview as he is non-verbal. Continue with antibiotics and fluids. Wound care pending, will follow up with cultures. 06/19 Pt seen at bedside, no acute events overnight. Sodium improving from 125 up to 127. If sodium doesn't continue to improve appreciably would recommend adjusting free water flushes. Remainder of his labs relatively unremarkable. Sacral wound cultures still pending, will follow up. Continue antibiotics 06/20 patient is seen and examined at bedside, no acute events overnight, remains hemodynamically stable, he is following simple commands, awake, sodium level at 126, we will continue to monitoring a.m., nephrology consultation requested, we will follow input recommendation. Serum osmolality 270. Sacral wound culture no growth. REVIEW OF SYSTEMS 12 point ROS negative unless noted in HPI PHYSICAL EXAM GENERAL APPEARANCE: The patient is awake, alert, and oriented, in no acute cardiopulmonary distress. NEUROLOGICAL: Cranial nerves II-XII grossly intact. Motor is 5/5 in bilateral upper and lower extremities proximal to distal. No sensory deficits. HEENT: Face is symmetric. Pupils are equal and reactive. Extraocular movements are intact. NECK: Supple. No JVD. No thyromegaly. No submental, submandibular, pre- /postauricular, occipital or supraclavicular lymphadenopathy. CHEST: Normal chest expansion. No Telemetry. LUNGS: Absence of any rales, rhonchi or any wheezing. CARDIOVASCULAR: Regular. S1 and S2 normal. No appreciable rubs, murmurs or gallops. ABDOMEN: Soft, nontender, and nondistended. There is no rebound, voluntary guarding, or rigidity. : Deferred. No Daniels. EXTREMITIES: Non-edematous and not cyanotic. No clubbing. Good capillary refill. SKIN: No skin breakdown. Vital Signs (last 8hr) Date Time Temp Pulse Resp B/P (MAP) Pulse Ox O2 Delivery O2 Flow Rate FiO2 06/20/24 11:42 98.2 72 19 133/82 97 Room Air 06/20/24 08:00 95 Room Air* 0 21 06/20/24 08:00 97.9 69 18 158/85 95 Room Air LABS: Laboratory: Test 06/20/24 11:20 06/20/24 04:09 06/19/24 04:27 Range/Units Whole Blood Glucose 126 H 70-110 MG/DL White Blood Count 7.3 # 4.8-10.8 K/uL Red Blood Count 3.44 L 4.50-6.20 MIL/uL Hemoglobin 11.3 L 14.0-18.0 g/dL Hematocrit 32.4 L 42-54 % Mean Corpuscular Volume 94.2 79-99 fL Mean Corpuscular Hemoglobin 32.8 27.0-33.0 pg Mean Corpuscular Hemoglobin Concent 34.9 32.0-36.0 g/dL Red Cell Distribution Width 15.3 11.0-15.5 % Platelet Count 313 130-400 K/uL Mean Platelet Volume 9.9 7.5-10.5 fL Immature Granulocyte % (Auto) 0.3 0-1 % Neutrophils (%) (Auto) 65.0 40.0-77.0 % Lymphocytes (%) (Auto) 25.6 21.0-51.0 % Monocytes (%) (Auto) 7.4 3.0-13.0 % Eosinophils (%) (Auto) 1.0 0.0-8.0 % Basophils (%) (Auto) 0.7 0.0-5.0 % Neutrophils # (Auto) 4.7 1.8-7.7 K/uL Lymphocytes # (Auto) 1.9 1.0-4.8 K/uL Monocytes # (Auto) 0.5 0.1-1.0 K/uL Eosinophils # (Auto) 0.07 0.00-0.70 K/uL Basophils # (Auto) 0.05 0.00-0.20 K/uL Absolute Immature Granulocyte (auto 0.02 0-1 K/uL Nucleated Red Blood Cells 0.0 0.0-0.19 % Sodium Level 126 L 136-145 mmol/L Potassium Level 4.5 3.5-5.1 mmol/L Chloride Level 92 L 101-111 mmol/L Carbon Dioxide Level 30 21-32 mmol/L Blood Urea Nitrogen 15 7-18 mg/dL Creatinine 0.8 0.5-1.3 mg/dL Glomerular Filtration Rate Calc 108 >90 mL/min Random Glucose 98 70-105 mg/dL Total Calcium 8.4 L 8.5-10.1 mg/dL Serum Osmolality 270 L 278-305 mOsm/kg Phosphorus Level 4.3 2.5-4.9 mg/dL Magnesium Level 1.90 1.80-2.40 mg/dL Current Medications Medications (Trade) Dose Ordered Sig/Werner Route PRN Reason Start Time Stop Time Status Last Admin Dose Admin Acetaminophen (TYLenol 325MG TAB) 650 mg Q6H PRN PO TEMPERATURE GREATER THAN 101.5 06/17/24 20:30 07/17/24 20:29 Alendronate Sodium (Fosamax 35mg Tab) 70 mg QWEEK@0630 PO 06/25/24 06:30 07/25/24 06:29 Atorvastatin Calcium (LIPItor 40MG) 40 mg DAILY PO 06/18/24 09:00 07/18/24 08:59 06/20/24 09:46 40 MG Cetirizine HCl (ZYRtec 5 MG TABLET) 10 mg DAILY PO 06/18/24 09:00 07/18/24 08:59 06/20/24 09:46 10 MG Famotidine (Pepcid 20mg Tab) 20 mg DAILY PO 06/17/24 21:00 07/17/24 20:59 06/20/24 09:45 20 MG Folic Acid (FOLic ACID 1 MG TABLET) 1 mg DAILY PO 06/18/24 09:00 07/18/24 08:59 06/20/24 09:45 1 MG Home Med (Home Medication) (Calcium Carb & Cit/ Vitamin... DAILY PO 06/18/24 09:00 07/18/24 08:59 Home Med (Home Medication) (Eslicarbazepine Acetate (Aptiom) 1 TAB) BID PO 06/18/24 09:00 07/18/24 08:59 Home Med (Home Medication) (Glycopyrrolate 1 TAB) DAILY PO 06/18/24 09:00 07/18/24 08:59 Home Med (Home Medication) (Linaclotide (Linzess) 1 CAP) DAILY PO 06/18/24 09:00 07/18/24 08:59 Hydralazine HCl (APRESOLine 20MG INJ) 10 mg Q6H PRN IV For:SBP above 160;DBP above 90 06/17/24 20:30 07/17/24 20:29 Hydroxyzine HCl (ATArax 25MG TAB) 25 mg TID PO 06/18/24 09:00 07/18/24 08:59 06/20/24 09:46 25 MG Levetiracetam (kepPRA SOLN 100 MG/ML 5 ML UDCUP) 1,500 mg BID PO 06/17/24 23:30 07/17/24 23:29 06/20/24 09:45 1,500 MG Levothyroxine Sodium (SYNTHroid 50MCG TAB) 50 mcg SYN PO 06/19/24 06:30 07/19/24 06:29 06/20/24 05:44 50 MCG Melatonin (Melatonin) 5 mg HS PO 06/18/24 21:00 07/18/24 20:59 06/19/24 19:42 5 MG Montelukast Sodium (SinguLAIR) 10 mg HS PO 06/18/24 21:00 07/18/24 20:59 06/19/24 19:42 10 MG Morphine Sulfate (morPHINE 2MG SYG) 2 mg Q4H PRN IVP SEVERE PAIN (7-10) 06/17/24 21:00 06/24/24 20:59 Mupirocin (Bactroban Oint) TID TP 06/18/24 09:00 07/18/24 08:59 06/20/24 09:46 1 APPL Ondansetron HCl (zoFRAN 4MG INJ) 4 mg Q6H PRN IV NAUSEA/VOMITING 06/17/24 20:30 07/17/24 20:29 Sodium Chloride 1,000 ml @ 75 mls/hr [id number] IV 06/17/24 20:30 06/19/24 07:38 DC 06/18/24 23:44 75 MLS/HR Sodium Chloride (Sodium Chloride) 1,000 mg BID PO 06/19/24 09:00 06/19/24 07:39 DC Tamsulosin HCl (FloMAX) 0.4 mg HS PO 06/18/24 21:00 07/18/24 20:59 06/19/24 19:42 0.4 MG Trazodone HCl (DesyREL/OlepTRO) 50 mg HS PO 06/18/24 21:00 07/18/24 20:59 06/19/24 19:42 50 MG DIAGNOSTICS / RADIOLOGY: [ ] ASSESSMENT: Hyponatremia, POA Sacral wound, POA Hypothyroidism, POA Seizure disorder, POA Dysphagia s/p PEG tube placement, POA Down's Syndrome, POA PLAN: - Continue levothyroxine 50mcg q24h - Continue cetirizine 50mg q24h - Continue keppra 1500mg BID - Continue NS @ 75 cc/hr - nephrology consultation requested, continue to follow sodium level in a.m. - sacral wound cultures negative - Continue tube feeds - All meds via PEG tube - Wound care consulted, appreciate recommendations Disposition: Pending improvement in clinical status FELIPE JAY MD Jun 20, 2024 15:14
[2024-06-21] VITALS (9 sets, daily range): BP systolic 95–139; BP diastolic 61–90; PULSE 72–95; RESP 16–20; TEMP 97.8–98.6; O2SAT 95–97
[2024-06-21 05:30] LABS: BASOPHILS # (AUTO) 0.06 K/uL (0.00-0.20); BASOPHILS % (AUTO) 0.6 % (0.0-5.0); EOSINOPHILS # (AUTO) 0.01 K/uL (0.00-0.70); EOSINOPHILS % (AUTO) 0.1 % (0.0-8.0); HEMATOCRIT 36.9 % (42-54); IMMATURE GRANULOCYTE ABSOLUTE 0.03 K/uL (0-1); LYMPHOCYTES # (AUTO) 2.1 K/uL (1.0-4.8); LYMPHOCYTES % (AUTO) 22.2 % (21.0-51.0); MEAN CORPUSCULAR HGB CONC 34.4 g/dL (32.0-36.0); MEAN CORPUSCULAR VOLUME 92.9 fL (79-99); MONOCYTES # (AUTO) 0.7 K/uL (0.1-1.0); MONOCYTES % (AUTO) 7.2 % (3.0-13.0); NEUTROPHILS # (AUTO) 6.5 K/uL (1.8-7.7); NEUTROPHILS % (AUTO) 69.6 % (40.0-77.0); PLATELET COUNT (AUTO) 300 K/uL (130-400); RED BLOOD CELL COUNT(AUTO) 3.97 MIL/uL (4.50-6.20); WHITE BLOOD COUNT (AUTO) 9.4 K/uL (4.8-10.8)
[2024-06-21 06:04] LABS: BILIRUBIN,TOTAL 0.5 mg/dL (0.2-1.0); CREATININE 0.9 mg/dL (0.5-1.3); MAGNESIUM 2.1 mg/dL (1.80-2.40); POTASSIUM 4.4 mmol/L (3.5-5.1); TOTAL PROTEIN, SERUM 7.7 g/dL (6.0-8.3)
--- NOTE | 2024-06-21 09:42 | DS ---
Discharge Summary Hospital Course Summary: 48-year-old male, with a Down syndrome, [facility] caregiver, secondary to small decubitus ulcer to the sacral area that has been present for several weeks. Patient has been at [facility] and was discharged home with antibiotics and mupirocin, he then saw his primary care doctor who was going to refer him to wound care, however did not get around to do this, they decided to bring him to [facility] for further evaluation. Today the patient is at baseline mental status. [facility] pending further recommendations by wound care. Legal Specialist(s): Wound care Assessment/Plan: Final diagnosis Hyponatremia, POA Sacral wound, POA Hypothyroidism, POA Seizure disorder, POA Dysphagia s/p PEG tube placement, POA Down's Syndrome, POA Discharge Instructions: [facility], [facility]. Home Medications: Reported Medications Melatonin (Melatonin) 5 Mg Tablet, 5 MG PO HS, TAB 06/17/24 Montelukast Sodium (Singulair) 10 Mg Tablet, 10 MG PO HS, TAB 06/17/24 Clotrimazole (Clotrimazole) 1 % Cream..g., 1 APPL TP BID for 7 Days, #15 GM 0 Refills apply to affected area(s) 06/17/24 Levetiracetam (Keppra) 100 Mg/Ml Solution, 15 ML PO BID for 30 Days, #300 ML 0 Refills 06/17/24 Sodium Chloride (Sodium Chloride) 1,000 Mg Tab, 2 TAB PO BID for 30 Days, #60 TAB 0 Refills 06/17/24 Sennosides/Docusate Sodium (Senna-Time S Tablet) 8.6 Mg-50 Mg Tablet, 1 EACH PO DAILY, TAB 06/17/24 Hydroxyzine HCl (Hydroxyzine HCl) 25 Mg Tablet, 1 TAB PO TID for anxiety for 30 Days, #90 TAB 0 Refills 06/17/24 Trazodone HCl (Trazodone HCl) 50 Mg Tablet, 1 TAB PO HS for 30 Days, #30 TAB 0 Refills 06/17/24 Linaclotide (Linzess) 145 Mcg Capsule, 1 CAP PO DAILY for 30 Days, #30 CAP 0 Refills 06/17/24 Cetirizine HCl (Cetirizine HCl) 10 Mg Tablet, 1 TAB PO DAILY for allergy symptoms for 30 Days, #30 TAB 0 Refills 06/17/24 Pantoprazole Sodium (Pantoprazole Sodium) 40 Mg Tablet.dr, 1 TAB PO DAILY for 30 Days, #30 TAB 0 Refills 06/17/24 Tamsulosin HCl (Flomax) 0.4 Mg Cap.er.24h, 0.4 MG PO HS, CAPSULE.DR 06/17/24 Alendronate Sodium (Alendronate Sodium) 70 Mg Tablet, 1 TAB PO QWEEK for on sundays for 28 Days, #4 TAB 0 Refills in the morning, at least 30 minutes before the first food, beverage, or medication of the day 06/17/24 Cyanocobalamin (Vitamin B-12) (Vitamin B12) 1,000 Mcg Tablet, 1000 MCG PO DAILY, TAB 06/17/24 Eslicarbazepine Acetate (Aptiom) 400 Mg Tablet, 1 TAB PO BID for 30 Days, #30 TAB 0 Refills 06/17/24 Atorvastatin Calcium (LIPITOR) 40 Mg Tablet, 1 TAB PO DAILY for 30 Days, #30 TAB 0 Refills 06/17/24 Calcium Carb & Cit/Vitamin D3 (Calcium + D3 ER Tablet) 600MG-12.5 Tablet.er, 1 EACH PO DAILY, TAB 06/17/24 Folic Acid (Folvite) 1 Mg Tab, 1 TAB PO DAILY for 30 Days, #30 TAB 0 Refills 06/17/24 Levothyroxine Sodium (Levothyroxine) 50 Mcg Capsule, 1 CAP PO DAILY for 30 Days, #30 CAP 0 Refills 06/17/24 Glycopyrrolate (Glycopyrrolate) 2 Mg Tablet, 1 TAB PO DAILY for 30 Days, #30 TAB 0 Refills 06/17/24 Mupirocin Calcium (Mupirocin) 2 % Cream..g., 1 APPL TP TID for 10 Days, #30 GM 0 Refills 06/17/24 Levetiracetam (Levetiracetam) 1,000 Mg Tablet, 1500 MG PEG BID, TAB 06/13/22 Clotrimazole (Lotrimin 1% Cream) 1 Appl/Gm Crm, 1 APPL TP BID, APPL 06/13/22 Montelukast Sodium (Montelukast Sodium) 10 Mg Tablet, 10 MG PEG HS, TAB 06/13/22 Melatonin (Melatonin) 5 Mg Capsule, 5 MG PEG HS, CAP 06/13/22 Atorvastatin Calcium (LIPITOR) 40 Mg Tablet, 40 MG PEG ACBKFST, TAB 06/13/22 Eslicarbazepine Acetate (Aptiom) 800 Mg Tablet, 800 MG PO BID, TAB 06/13/22 Time spent arranging discharge: 31-60 minutes FELIPE JAY MD Jun 21, 2024 09:42
[2024-06-21] MEDS ORDERED: HONE44PA TP (09:45)
[2024-06-21] MEDS ORDERED: MUPI22OI2 TP (09:46)
[2024-06-21] MEDS: HONEY 1 APPL/ML TUBE TP SCH (09:57)
--- NOTE | 2024-06-21 10:25 | NUR ---
SPOKE WITH [employer] SPOOLER OPERATOR REGARDING DISCHARGE TRANSPORTATION FOR PATIENT. SPOOLER OPERATOR WILL INVESTIGATE OPTIONS FOR TRANSPORTATION. PENDING UPDATE REGARDING TRANSFER OPTIONS FOR PATIENT.
--- NOTE | 2024-06-21 10:37 | NUR ---
SPOKE WITH [facility] FOR RECOMMENDATIONS PRIOR TO PATIENT DISCHARGE. [facility] SUGGESTED TO CONTINUE WITH RECOMMENDATIONS ALREADY IN THE SYSTEM. PATIENT WILL BE DISCHARGED WITH MEDIHONEY GEL TO BE COVERED WITH ALLEVYN PATCHES.
--- NOTE | 2024-06-21 10:59 | NUR ---
NOTIFIED DR. JAY OF SODIUM LEVEL OF 129. PER DR. JAY, PATIENT IS OKAY TO DISCHARGE TODAY.
--- NOTE | 2024-06-21 11:22 | NUR ---
SPOKE WITH JOHANA, NURSE OF [facility], FOR REPORT. JOHANA EXPRESSED CONCERN WITH PATIENT RETURNING TO LONGTERM. PER JOHANA, WORK SCHEDULE WOULD NOT ALLOW HER TO TEND TO WOUND OVER THE WEEKEND. ALSO, STAFF AT THE LONGTERM ARE NOT MEDICALLY TRAINED TO ASSIST IN WOUND CARE. PER JOHANA, CONCERN IS THAT WOUND WILL WORSEN IN THE LONGTERM. WILL CHECK WITH CASE MANAGEMENT AND MD IF ANY CHANGE TO THE DISCHARGE PLAN IS RECOMMENDED.
--- NOTE | 2024-06-21 11:50 | NUR ---
SPOKE WITH JOHANA, NURSE OF [facility], REGARDING DISCHARGE. EXPLAINED TO JOHANA THAT CASE MANAGEMENT AND MD HAD BEEN SPOKEN TO AND THAT DISCHARGE WOULD NOT BE HELD DUE TO WOUND CARE MANAGEMENT. EXPLAINED TO JOHANA THAT WOUND CARE WAS SIMPLE AND PROVIDED EDUCATION OVER THE PHONE ON HOW WOUND CARE WAS DONE. JOHANA THEN BEGAN TO INQUIRE ABOUT THE PATIENT'S COUGH. JOHANA CLAIMED THAT "A NURSE YESTERDAY REPORTED THAT THE PATIENT WAS HAVING CONSISTENT COUGH. HE USUALLY GETS LIKE THIS WHEN HE HAS PNEUMONIA. HAVE YOU GUYS DONE A CHEST XRAY"? EXPLAINED TO JOHANA THAT A CHEST XRAY HAD NOT BEEN DONE FOR THE PATIENT. TOLD JOHANA THAT MD WOULD BE NOTIFIED AND THAT DISCHARGE WOULD BE REVIEWED FURTHER. CALLED MD AND CASE MANAGEMENT AND REPORTED WHAT JOHANA HAD TOLD ME. MD ORDERED CHEST XRAY. ASSEMBLER SEAT CALLED NORMA FROM [facility] AND EXPLAINED SITUATION. PER NORMA, CONVERSATION WOULD BE HAD WITH JOHANA. PER REQUEST, WILL INFORM NORMA OF CHEST XRAY RESULTS. PENDING CHEST XRAY FOR PATIENT.
--- NOTE | 2024-06-21 14:39 | HMCIMG ---
CHEST 1VW HISTORY: Rule out pneumonia COMPARISON: 06/11/2022 FINDINGS: A frontal projection of the chest was obtained. Prominent interstitial markings are seen with possible superimposed infiltrates. There is again made of bowel loops noted between the right hemidiaphragm and liver unchanged. The heart is borderline enlarged. All the lines and tubes are again seen in place. No evidence of aortic calcification is seen. IMPRESSION: 1. Prominent interstitial markings are seen with possible superimposed infiltrates.
--- NOTE | 2024-06-21 16:06 | NUR ---
Notes: Met with pt. Spoke to nursing. Nursing reports no IV fluids administered, 10 ml residuals, no n/v and abdomen distension, good TF tolerance, 30 ml H2O flushes before and after medication administration BID. TF via PEG of Jevity 1.5 4 cans + 100 ml H2O Flushes Q6H + 30 ml H2O flushes before and after medication administration BID, provides 1420 kcals, 60 gm of protein, and 1240 ml. Meeting the pts kcals needs and protein needs. Mcfp Recommendation: Provide Jevity 1.5 3.5 cans a day + 190 H2O flushes Q6H, Provide 1243 kcals, 53 gm of protein, 1390 ml of fluid Nutrition Concerns: Recommendations: Advance H2O flushes to 140 Q6H when medically feasible to meet pt fluid needs. Provide MVI per wound healing if medically feasible Provide Zinc 20 mg per wound healing if medically feasible Provide Vit C 500 mg BID per wound healing if medically feasible Provide B12 Complex per wound healing if medically feasible Continue to provide Folic Acid as needed. Monitor weight, Reweigh as possible Monitor electrolytes, Replenish electrolytes as protocol Monitor goals of care RD to follow + available for consult per protocol Dietetic Student, Renetta Smith Addendum: 06/21/24 at [address] Amended: Links added.
[2024-06-21 16:28] LABS: RAPID GROUP A STREP negative (NEGATIVE)
[2024-06-21 16:43] LABS: INFLUENZA TYPE A Negative For Type A (NEGATIVE); INFLUENZA TYPE B Negative For Type B (NEGATIVE)
--- NOTE | 2024-06-21 17:20 | HMCIMG ---
CT CHEST W/O CONTRAST HISTORY: Pneumonia COMPARISON: None TECHNIQUE: Multiple sequential axial images of the chest were obtained from the thoracic inlet through upper abdomen. Patient was not given contrast through intravenous route. FINDINGS: COPD changes are seen. Minimal right upper lobe and left lower lung pulmonary infiltrates are seen. No pleural effusion or pericardial effusion is seen. There is no evidence of pneumothorax. There are normal size mediastinal and hilar lymph nodes. The heart is not enlarged. There are distended bowel loops noted between the right hemidiaphragm and liver. Degenerative changes of the thoracolumbar spine are present. There is no evidence of adrenal nodule. IMPRESSION: 1. Minimal right upper lobe and left lower lung pulmonary infiltrates are seen. COPD changes are seen. The study is limited due to poor positioning. CT was performed with one or more following dose reduction techniques: automated exposure control, adjustment of the mA and kv according to patient's size, or use of a iterative reconstruction technique.
[2024-06-21 18:20] LABS: COVID19 (SARS ANTIGEN RAPID) PRESUMPTIVE NEGATIVE (NEGATIVE)
[2024-06-21] MEDS: cefTRIAXone 1G VIAL IVPB SCH (18:48)
[2024-06-21] MEDS: AZITHROMYCIN 500MG+NS 250ML 250 ML IVPB SCH (21:41)
--- NOTE | 2024-06-21 22:00 | CONS ---
REFERRING PHYSICIAN: Michael Franco MD REASON FOR CONSULTATION: Renal dysfunction, hyponatremia. HISTORY OF PRESENT ILLNESS: A 48-year-old male with history of Down syndrome. He lives at a senior care. The history was obtained via the chart as the patient unable to give any form of review of systems. The patient initially presented and found to have sacral decubiti. The patient had been with wound management, as well as antibiotics. The patient has had a prolonged hospital course. During his hospital course, the patient was found to have significant hyponatremia. The patient does have tube feeds in place. PAST MEDICAL HISTORY: Seizures, history of Down syndrome. SOCIAL HISTORY: He lives at the senior care. SOCIAL HISTORY: No alcohol or tobacco use. FAMILY HISTORY: There is no renal disease in the family. REVIEW OF SYSTEMS: He is unable to give any formal review of systems. OBJECTIVE: VITAL SIGNS: Blood pressure is 134/90, pulse 70s, afebrile. GENERAL: He is a chronically ill male, older than appearing. HEENT: Head is atraumatic. Pupils equal, roving to light. Oropharynx is without exudate. Nares clear. NECK: No JVP, no thyromegaly. CARDIOVASCULAR: Regular. There is no S3, S4 gallop. LUNGS: Coarse with equal thoracic movement. ABDOMEN: Soft, nondistended, nontender. EXTREMITIES: Using contractures. NEUROLOGICAL: He is unchanged. SKIN: Reveals no rash or nodules. BACK: There is no CVA tenderness, no back deformities. LABORATORY DATA: Hemoglobin 12, hematocrit 36. Sodium 129, potassium 4.4, BUN 18, creatinine 0.9, glucose is 117. Albumin is 3. Urinalysis is unremarkable. Urine osmolarity is 273. IMPRESSION: * Renal dysfunction. * Hyponatremia. * History of seizures. * Sacral decubiti. PLAN: The patient does have significant hyponatremia consistent with SIADH. The patient's free water boluses will be decreased via the feedings and we will continue to follow the patient's serum sodium closely. The patient is being seen by Wound Care. He remains on the Keppra for his underlying seizures. The patient is being seen by case management in regards to final disposition, which will be back to the senior care. We will continue to follow closely. All labs can be repeated in the morning. TID: [id number] RECEIPT: [id number]
[2024-06-22] VITALS (7 sets, daily range): BP systolic 102–135; BP diastolic 57–83; PULSE 69–78; RESP 16–20; TEMP 97.7–98.1; O2SAT 99–100
--- NOTE | 2024-06-22 09:39 | PN ---
SUBJECTIVE: A 48-year-old male initially presented with sacral decubiti. The patient has a history of down syndrome. The patient does have a PEG in place. The patient was found to have hyponatremia, which has improved. The patient's free water has been limited and he is being seen as a followup visit for all the above. He is tolerating the feedings without difficulty. He is pending placement back at the [facility]. REVIEW OF SYSTEMS: He is really unable to give any review of systems. He is tolerating the tube feeds. OBJECTIVE: VITAL SIGNS: Blood pressure 135/75, pulse 60s. He is afebrile. GENERAL: He is a chronically ill male, older than appearing. HEENT: Head is atraumatic. Pupils equal, roving to light. Oropharynx is without exudate. Nares clear. NECK: There is no JVP. There is no thyromegaly, no mass. CARDIOVASCULAR: Regular. There is no S3, S4 gallop. LUNGS: Coarse with equal thoracic movement. ABDOMEN: Soft, nondistended, nontender. EXTREMITIES: He has contractures. NEUROLOGIC: He is unchanged. IMPRESSION: * Sacral decubiti. * Hyponatremia. * Aspiration. * Electrolyte abnormalities. PLAN: The patient's serum sodium has remained stable. The patient's free water has been limited. He is tolerating the feedings without difficulty. The patient remains on the antibiotics as well as the local wound care. We will continue to follow closely. The patient can safely be discharged from a renal standpoint. TID: [id number] RECEIPT: [id number]
--- NOTE | 2024-06-22 12:02 | PN ---
[facility] PROGRESS NOTE Date of Service: Jun 22, 2024 Time of Service: 11:58 SUBJECTIVE: 06/18 Pt seen at bedside, no acute events overnight. He is unable to participate in the medical interview as he is non-verbal. Continue with antibiotics and fluids. Wound care pending, will follow up with cultures. 06/19 Pt seen at bedside, no acute events overnight. Sodium improving from 125 up to 127. If sodium doesn't continue to improve appreciably would recommend adjusting free water flushes. Remainder of his labs relatively unremarkable. Sacral wound cultures still pending, will follow up. Continue antibiotics 06/20 patient is seen and examined at bedside, no acute events overnight, remains hemodynamically stable, he is following simple commands, awake, sodium level at 126, we will continue to monitoring a.m., nephrology consultation requested, we will follow input recommendation. Serum osmolality 270. Sacral wound culture no growth. 06/22 patient is seen and examined at bedside, no acute events overnight, per my discussion with the nurse yesterday, the patient was evaluated by the nurse from the [facility], apparently patient was having some cough, chest x-ray followed by CT chest done, possible bilateral pneumoniae, patient is started on azithromycin and Rocephin IV, pulmonary consultation requested. During my visit patient is comfortable, not in distress, getting IV antibiotics, no family members at bedside. BP 135/75. Afebrile, saturating normal room air. REVIEW OF SYSTEMS 12 point ROS negative unless noted in HPI PHYSICAL EXAM GENERAL APPEARANCE: Patient awake, not agitated, not combative. Patient with Down syndrome, not able to have full conversation. NEUROLOGICAL: Cranial nerves II-XII grossly intact. Motor is 5/5 in bilateral upper and lower extremities proximal to distal. No sensory deficits. HEENT: Face is symmetric. Pupils are equal and reactive. Extraocular movements are intact. NECK: Supple. No JVD. No thyromegaly. No submental, submandibular, pre- /postauricular, occipital or supraclavicular lymphadenopathy. CHEST: Normal chest expansion. No Telemetry. LUNGS: Absence of any rales, rhonchi or any wheezing. CARDIOVASCULAR: Regular. S1 and S2 normal. No appreciable rubs, murmurs or gallops. ABDOMEN: Soft, nontender, and nondistended. There is no rebound, voluntary guarding, or rigidity. : Deferred. No Daniels. EXTREMITIES: Non-edematous and not cyanotic. No clubbing. Good capillary refill. SKIN: No skin breakdown. Vital Signs (last 8hr) Date Time Temp Pulse Resp B/P (MAP) Pulse Ox O2 Delivery O2 Flow Rate FiO2 06/22/24 08:14 97.7 69 16 135/75 06/22/24 04:00 98.1 69 20 102/57 92 Room Air LABS: Laboratory: Test 06/22/24 10:51 06/22/24 05:19 06/21/24 15:25 06/21/24 04:50 Range/Units Procalcitonin < 0.05 L 0.05-0.5 ng/mL Thyroid Stimulating Hormone (TSH) 4.87 H 0.36-3.74 uIU/mL Whole Blood Glucose 117 #H 70-110 MG/DL Influenza Type A Antigen Negative For Type A NEGATIVE Influenza Type B Antigen Negative For Type B NEGATIVE SARS-CoV-2 Antigen (Rapid) PRESUMPTIVE NEGATIVE NEGATIVE Group A Streptococcus Rapid negative NEGATIVE White Blood Count 9.4 4.8-10.8 K/uL Red Blood Count 3.97 L 4.50-6.20 MIL/uL Hemoglobin 12.7 L 14.0-18.0 g/dL Hematocrit 36.9 L 42-54 % Mean Corpuscular Volume 92.9 79-99 fL Mean Corpuscular Hemoglobin 32.0 27.0-33.0 pg Mean Corpuscular Hemoglobin Concent 34.4 32.0-36.0 g/dL Red Cell Distribution Width 15.0 11.0-15.5 % Platelet Count 300 130-400 K/uL Mean Platelet Volume 9.8 7.5-10.5 fL Immature Granulocyte % (Auto) 0.3 0-1 % Neutrophils (%) (Auto) 69.6 40.0-77.0 % Lymphocytes (%) (Auto) 22.2 21.0-51.0 % Monocytes (%) (Auto) 7.2 3.0-13.0 % Eosinophils (%) (Auto) 0.1 0.0-8.0 % Basophils (%) (Auto) 0.6 0.0-5.0 % Neutrophils # (Auto) 6.5 1.8-7.7 K/uL Lymphocytes # (Auto) 2.1 1.0-4.8 K/uL Monocytes # (Auto) 0.7 0.1-1.0 K/uL Eosinophils # (Auto) 0.01 0.00-0.70 K/uL Basophils # (Auto) 0.06 0.00-0.20 K/uL Absolute Immature Granulocyte (auto 0.03 0-1 K/uL Nucleated Red Blood Cells 0.0 0.0-0.19 % Sodium Level 129 L 136-145 mmol/L Potassium Level 4.4 3.5-5.1 mmol/L Chloride Level 93 L 101-111 mmol/L Carbon Dioxide Level 28 21-32 mmol/L Blood Urea Nitrogen 18 7-18 mg/dL Creatinine 0.9 0.5-1.3 mg/dL Glomerular Filtration Rate Calc 105 >90 mL/min Random Glucose 115 H 70-105 mg/dL Total Calcium 8.9 8.5-10.1 mg/dL Magnesium Level 2.10 1.80-2.40 mg/dL Total Bilirubin 0.5 0.2-1.0 mg/dL Aspartate Amino Transf (AST/SGOT) 31 10-37 U/L Alanine Aminotransferase (ALT/SGPT) 30 12-78 U/L Alkaline Phosphatase 137 H 50-136 U/L Total Protein 7.7 6.0-8.3 g/dL Albumin 3.0 L 3.5-5.0 g/dL Current Medications Medications (Trade) Dose Ordered Sig/Werner Route PRN Reason Start Time Stop Time Status Last Admin Dose Admin Acetaminophen (TYLenol 325MG TAB) 650 mg Q6H PRN PO TEMPERATURE GREATER THAN 101.5 06/17/24 20:30 07/17/24 20:29 Alendronate Sodium (Fosamax 35mg Tab) 70 mg QWEEK@0630 PO 06/25/24 06:30 07/25/24 06:29 Atorvastatin Calcium (LIPItor 40MG) 40 mg DAILY PO 06/18/24 09:00 07/18/24 08:59 06/22/24 09:52 40 MG Azithromycin 250 ml @ 250 mls/hr Q24H IVPB 06/21/24 20:00 07/01/24 19:59 06/21/24 21:41 250 MLS/HR Ceftriaxone Sodium (ROCEphine 1G INJ) 1 gm Q24H IVPB 06/21/24 17:30 07/01/24 17:29 06/21/24 18:48 1 GM Cetirizine HCl (ZYRtec 5 MG TABLET) 10 mg DAILY PO 06/18/24 09:00 07/18/24 08:59 06/22/24 09:52 10 MG Famotidine (Pepcid 20mg Tab) 20 mg DAILY PO 06/17/24 21:00 07/17/24 20:59 06/22/24 09:53 20 MG Folic Acid (FOLic ACID 1 MG TABLET) 1 mg DAILY PO 06/18/24 09:00 07/18/24 08:59 06/22/24 09:53 1 MG Home Med (Home Medication) (Calcium Carb & Cit/ Vitamin... DAILY PO 06/18/24 09:00 07/18/24 08:59 Home Med (Home Medication) (Eslicarbazepine Acetate (Aptiom) 1 TAB) BID PO 06/18/24 09:00 07/18/24 08:59 Home Med (Home Medication) (Glycopyrrolate 1 TAB) DAILY PO 06/18/24 09:00 07/18/24 08:59 Home Med (Home Medication) (Linaclotide (Linzess) 1 CAP) DAILY PO 06/18/24 09:00 07/18/24 08:59 Hydralazine HCl (APRESOLine 20MG INJ) 10 mg Q6H PRN IV For:SBP above 160;DBP above 90 06/17/24 20:30 07/17/24 20:29 Hydroxyzine HCl (ATArax 25MG TAB) 25 mg TID PO 06/18/24 09:00 07/18/24 08:59 06/22/24 09:53 25 MG Leptospermum Honey ([employer]) apply to coccyx DAILY TP 06/21/24 09:00 07/21/24 08:59 06/22/24 09:53 1 APPL Levetiracetam (kepPRA SOLN 100 MG/ML 5 ML UDCUP) 1,500 mg BID PO 06/17/24 23:30 07/17/24 23:29 06/22/24 09:47 1,500 MG Levothyroxine Sodium (SYNTHroid 50MCG TAB) 50 mcg SYN PO 06/19/24 06:30 07/19/24 06:29 06/22/24 06:14 50 MCG Melatonin (Melatonin) 5 mg HS PO 06/18/24 21:00 07/18/24 20:59 06/21/24 21:44 5 MG Montelukast Sodium (SinguLAIR) 10 mg HS PO 06/18/24 21:00 07/18/24 20:59 06/21/24 21:44 10 MG Morphine Sulfate (morPHINE 2MG SYG) 2 mg Q4H PRN IVP SEVERE PAIN (7-10) 06/17/24 21:00 06/24/24 20:59 Mupirocin (Bactroban Oint) TID TP 06/18/24 09:00 07/18/24 08:59 06/22/24 09:54 10 APPL Ondansetron HCl (zoFRAN 4MG INJ) 4 mg Q6H PRN IV NAUSEA/VOMITING 06/17/24 20:30 07/17/24 20:29 Sodium Chloride 1,000 ml @ 75 mls/hr [id number] IV 06/17/24 20:30 06/19/24 07:38 DC 06/18/24 23:44 75 MLS/HR Sodium Chloride (Sodium Chloride) 1,000 mg BID PO 06/19/24 09:00 06/19/24 07:39 DC Tamsulosin HCl (FloMAX) 0.4 mg HS PO 06/18/24 21:00 07/18/24 20:59 06/21/24 21:44 0.4 MG Trazodone HCl (DesyREL/OlepTRO) 50 mg HS PO 06/18/24 21:00 07/18/24 20:59 06/21/24 21:44 50 MG DIAGNOSTICS / RADIOLOGY: [ ] Problem list Possible bilateral pneumonia Hyponatremia, POA Sacral wound, POA Hypothyroidism, POA Seizure disorder, POA Dysphagia s/p PEG tube placement, POA Down's Syndrome, POA PLAN: Patient remains admitted to the medical floor Continue broad-spectrum IV antibiotics with Rocephin and azithromycin IV Pulmonary consultation requested, follow input and recommendation. We will check for Streptococcus pneumoniae and Legionella antigen as the patient with hyponatremia as well. Nephrology input noted and appreciated, free water has been limited, continue to monitor sodium level in a.m.. Continue wound care NEURO: Minimize central acting medications as possible. Fall Precautions. Well lighted room through the day and minimize interruptions through the night to prevent acute delirium. PULMONARY: Supplemental 02 as needed BiPAP as necessary, for respiratory distress Titrate Fio2 to keep Spo2 > or = 90% DuoNebs and CPT as needed IS hourly while awake for pulmonary hygiene prn Out of bed to chair as tolerated Maintain aspiration precautions at all times CARDIOVASCULAR: Follow hemodynamics. Vital signs per facility protocol GI & NUTRITION: Continue nutritional support Aspirations precautions Prokinetic agents and laxatives as needed KIDNEYS & ELECTROLYTES: Strict monitoring of intake and output Daily weights Avoid nephrotoxic agents Monitor electrolytes and replace as needed Goal urine output of 30mL/hr or 0.5mL/kg/hr Medications to be dosed according to renal function. Avoid contrast if possible ENDOCRINE: Maintain blood glucose between 100-180 at all times. Insulin sliding scale for blood glucose management Hypoglycemia and hyperglycemia protocol in place INFECTIOUS DISEASE: Trend temperature, WBC and procalcitonin level Follow cultures, deescalate antibiotics as soon as possible. Panculture if new onset fever HEMATOLOGY & COAGULATION: Monitor H&H. Keep Hgb > 7 Transfuse 1 unit of PRBC for Hgb < 7 Transfuse 1 pack of platelets of platelets < 20, 000 Watch for any signs and symptoms of bleeding SKIN: Pressure ulcer prevention per facility protocol Specialty mattress as needed ORTHO/REHAB Continue PT/OT PRN: MEDICATIONS Tylenol 650 mg po every 4 hrs for fever zofran 4 mg IV every 6 hrs for n/v Hydralazine 5 mg IV every 4 hrs systolic pressure > 160 bowel regiment: lactulose 20 gm PO BID PRN constipation Supportive measures: Continue GI and DVT prophylaxis Disposition: Pending improvement in clinical condition All questions answered time spent: > 35 min FELIPE JAY MD Jun 22, 2024 12:02
--- NOTE | 2024-06-22 13:58 | CONS ---
[facility] CONSULTATION NOTE Date Patient Seen: Jun 22, 2024 Time of Visit: 1133 Supervising Physician: Dr. Grier Reason for Consultation: Bilateral pneumonia Inpatient Consults: BIS PROBLEM LIST: Possible bilateral pneumonia Acute Hyponatremia, POA Sacral wound, POA Hypothyroidism, POA Seizure disorder, POA Dysphagia s/p PEG tube placement, POA Down's Syndrome, POA HPI: PATIENT IS A 48-YEAR-OLD DOWN SYNDROME PATIENT COMING FROM A LOCAL CORRECTION WITH A CAREGIVER. CAREGIVER HAD VERY LITTLE INFORMATION OTHER THAN SOME P APERWORK FROM THE CORRECTION. I CALLED AND I SPOKE WITH JOHANA NORWOOD RN WHO IS ONLY THERE THURSDAY THROUGH THURSDAY. SHE STATES PATIENT HAS A DECUBITUS ULCER HE HAS HAD TO HIS SACRUM FOR SEVERAL WEEKS, HAS ALREADY BEEN TO [facility] AND WAS DISCHARGED HOME WITH ANTIBIOTICS AND MUPIROCIN. HE THEN SAW HIS PRIMARY CARE DOCTOR YESTERDAY WHO WAS GOING TO REFER HIM TO WOUND CARE HOWEVER DID NOT GET AROUND TO DOING THIS. TODAY THEY DECIDED TO SEND HIM TO [facility] FOR FURTHER EVALUATION HOPEFULLY ADMISSION AND WOUND CARE MANAGEMENT. PATIENT IS NOT ABLE TO PROVIDE ANY HISTORY. PER THE CAREGIVER PATIENT HAS HAD NO FEVER NO CHILLS NO NAUSEA VOMITING. Patient was seen and examined by bedside with no family present. Patient nonverbal with history of Down syndrome. Patient currently on room air appears to be tolerating well. As per primary nurse no acute events to be reported. Patient's CT chest shows right upper lobe and left lower lobe infiltrate, at this time we will order a procalcitonin level. Patient to continue on current IV antibiotics Rocephin and azithromycin. Pulmonology were consulted for bilate ral pneumonia thank you for allowing us to participate in the care of this patient we will continue to monitor while patient is in the hospital. All recommendations listed below. PAST MEDICAL HX: see above PAST SURGICAL HX: noncontributory SOCIAL HISTORY: No tobacco, ETOH, or illicit drug use Coded Allergies: No Known Drug Allergies (Unverified Allergy, Unknown, 06/10/22) REVIEW OF SYSTEMS: 12 point ROS reviewed with patient. Pertinent positives mentioned above. Otherwise negative. PHYSICAL EXAM: GENERAL: Chronically ill 48-year-old male lying in bed no obvious signs and symptoms of distress HEENT: EOMI, Sclera non icteric, moist mucosa NECK: Supple, no JVD, trachea midline LUNGS: Clear breath sounds bilaterally. No wheezes HEART: Regular rate and rhythm. Normal S1 and S2, without murmurs ABD: Abdomen soft, nontender. Bowel sounds present EXT: No clubbing cyanosis or edema NEURO: Awake nonverbal does not follow any simple command Vital Signs (last 8hr) Date Time Temp Pulse Resp B/P (MAP) Pulse Ox O2 Delivery O2 Flow Rate FiO2 06/22/24 12:00 97.9 75 16 125/83 98 Room Air 06/22/24 08:14 97.7 69 16 135/75 LABS: Hematology Labs: Test 06/21/24 04:50 Range/Units White Blood Count 9.4 4.8-10.8 K/uL Red Blood Count 3.97 L 4.50-6.20 MIL/uL Hemoglobin 12.7 L 14.0-18.0 g/dL Hematocrit 36.9 L 42-54 % Mean Corpuscular Volume 92.9 79-99 fL Mean Corpuscular Hemoglobin 32.0 27.0-33.0 pg Mean Corpuscular Hemoglobin Concent 34.4 32.0-36.0 g/dL Red Cell Distribution Width 15.0 11.0-15.5 % Platelet Count 300 130-400 K/uL Mean Platelet Volume 9.8 7.5-10.5 fL Immature Granulocyte % (Auto) 0.3 0-1 % Neutrophils (%) (Auto) 69.6 40.0-77.0 % Lymphocytes (%) (Auto) 22.2 21.0-51.0 % Monocytes (%) (Auto) 7.2 3.0-13.0 % Eosinophils (%) (Auto) 0.1 0.0-8.0 % Basophils (%) (Auto) 0.6 0.0-5.0 % Neutrophils # (Auto) 6.5 1.8-7.7 K/uL Lymphocytes # (Auto) 2.1 1.0-4.8 K/uL Monocytes # (Auto) 0.7 0.1-1.0 K/uL Eosinophils # (Auto) 0.01 0.00-0.70 K/uL Basophils # (Auto) 0.06 0.00-0.20 K/uL Absolute Immature Granulocyte (auto 0.03 0-1 K/uL Nucleated Red Blood Cells 0.0 0.0-0.19 % Chemistry Labs: Test 06/22/24 11:49 06/22/24 10:51 06/21/24 04:50 Range/Units Whole Blood Glucose 129 H 70-110 MG/DL Procalcitonin < 0.05 L 0.05-0.5 ng/mL Thyroid Stimulating Hormone (TSH) 4.87 H 0.36-3.74 uIU/mL Sodium Level 129 L 136-145 mmol/L Potassium Level 4.4 3.5-5.1 mmol/L Chloride Level 93 L 101-111 mmol/L Carbon Dioxide Level 28 21-32 mmol/L Blood Urea Nitrogen 18 7-18 mg/dL Creatinine 0.9 0.5-1.3 mg/dL Glomerular Filtration Rate Calc 105 >90 mL/min Random Glucose 115 H 70-105 mg/dL Total Calcium 8.9 8.5-10.1 mg/dL Magnesium Level 2.10 1.80-2.40 mg/dL Total Bilirubin 0.5 0.2-1.0 mg/dL Aspartate Amino Transf (AST/SGOT) 31 10-37 U/L Alanine Aminotransferase (ALT/SGPT) 30 12-78 U/L Alkaline Phosphatase 137 H 50-136 U/L Total Protein 7.7 6.0-8.3 g/dL Albumin 3.0 L 3.5-5.0 g/dL DIAGNOSTICS / RADIOLOGY RESULTS: PLAN CT scan was reviewed by supervising physician no evidence of pneumonia, and with negative protocol and no white count no antibiotics are recommended upon discharge Follow up procalcitonin level, profile negative Continue with current IV antibiotics Continue to monitor respiratory status and maintain adequate oxygenation Keep O2 sats greater or equal to 90% Aspiration precautions Rest of the care per primary team NEURO: Minimize central acting medications as possible. Maintain fall precautions, adequate lighting during the day PULMONARY: Supplemental 02 as needed. Maintain aspiration precautions at all times CARDIOVASCULAR: Follow hemodynamics. Vital signs per facility protocol GI & NUTRITION: Continue with nutritional support. Continue stool softeners and laxatives as needed. KIDNEYS & ELECTROLYTES: Strict monitoring of intake, output and overall fluid balance. Avoid nephrotoxic medications to the extent possible. Medications to be dosed according to renal function. Monitor electrolytes and replace as needed ENDOCRINE: Maintain blood glucose between 100-180 at all times. Hypoglycemia protocol in place INFECTIOUS DISEASE: Trend temperature, WBC and procalcitonin level Follow cultures, deescalate antibiotics as soon as possible. Panculture if new onset fever ONCOLOGY/HEMATOLOGY/COAGULATION: Monitor for s/s of bleeding Monitor hemoglobin, coagulation studies as needed SKIN: Pressure ulcer prevention per facility protocol Specialty mattress ORTHO/REHAB: Continue PT/OT Prophylaxis: Continue GI and DVT prophylaxis Code Status: Full Resuscitation Disposition: Per primary team Other: Case discussed with supervising physician plan of care agreed upon ERICKA TENA Jun 22, 2024 13:58
[2024-06-23] VITALS: BP 92/54; PULSE 77; RESP 20; TEMP 98
[2024-06-23 04:00] VITALS: BP 107/63; PULSE 77; RESP 18; TEMP 98.3
[2024-06-23 04:34] LABS: MEAN CORPUSCULAR HEMOGLOBIN 32.1 pg (27.0-33.0); MEAN CORPUSCULAR HGB CONC 34.5 g/dL (32.0-36.0); MEAN CORPUSCULAR VOLUME 93.1 fL (79-99); RED BLOOD CELL COUNT(AUTO) 3.33 MIL/uL (4.50-6.20); RED CELL DISTRIBUTION WIDTH 14.9 % (11.0-15.5); WHITE BLOOD COUNT (AUTO) 7.3 K/uL (4.8-10.8)
[2024-06-23 04:52] LABS: ALBUMIN 2.6 g/dL (3.5-5.0); BILIRUBIN,TOTAL 0.3 mg/dL (0.2-1.0); CREATININE 0.7 mg/dL (0.5-1.3); POTASSIUM 4.2 mmol/L (3.5-5.1); TOTAL PROTEIN, SERUM 6.8 g/dL (6.0-8.3)
[2024-06-23 08:30] VITALS: BP 112/74; PULSE 88; RESP 16; TEMP 98.7
[2024-06-23 11:30] VITALS: BP 106/60; PULSE 85; RESP 16; TEMP 98.5
--- NOTE | 2024-06-23 13:54 | PN ---
[facility] PROGRESS NOTE Date Patient Seen: Jun 23, 2024 Time of Visit: 1119 Supervising Physician: Dr. Yun Inpatient Consults: BIS PROBLEM LIST: Possible bilateral pneumonia Acute Hyponatremia, POA Sacral wound, POA Hypothyroidism, POA Seizure disorder, POA Dysphagia s/p PEG tube placement, POA Down's Syndrome, POA INTERVAL HISTORY: 06/23 patient was seen and examined by bedside with no family present. Patient is nonverbal does not answer following simple commands appropriately. Patient does have history of down syndrome. Patient has remained hemodynamically stable. No temperatures have been reported. As per primary nurse no acute events to be reported at this time. Patient to continue with current IV antibiotics, but recommendations are for no oral antibiotics upon discharge REVIEW OF SYSTEMS: 12 point ROS reviewed with patient. Pertinent positives mentioned above. Otherwise negative. PHYSICAL EXAM: GENERAL: Chronically ill 48-year-old male lying in bed no obvious signs and symptoms of distress HEENT: EOMI, Sclera non icteric, moist mucosa NECK: Supple, no JVD, trachea midline LUNGS: Clear breath sounds bilaterally. No wheezes HEART: Regular rate and rhythm. Normal S1 and S2, without murmurs ABD: Abdomen soft, nontender. Bowel sounds present EXT: No clubbing cyanosis or edema NEURO: Awake nonverbal does not follow any simple command Vital Signs (last 8hr) Date Time Temp Pulse Resp B/P (MAP) Pulse Ox O2 Delivery O2 Flow Rate FiO2 06/23/24 11:30 98.4 85 16 106/60 96 Room Air 21 06/23/24 08:30 98.8 88 16 112/74 98 Room Air 21 LABS: Hematology Labs: Test 06/23/24 04:17 Range/Units White Blood Count 7.3 4.8-10.8 K/uL Red Blood Count 3.33 L 4.50-6.20 MIL/uL Hemoglobin 10.7 L 14.0-18.0 g/dL Hematocrit 31.0 L 42-54 % Mean Corpuscular Volume 93.1 79-99 fL Mean Corpuscular Hemoglobin 32.1 27.0-33.0 pg Mean Corpuscular Hemoglobin Concent 34.5 32.0-36.0 g/dL Red Cell Distribution Width 14.9 11.0-15.5 % Platelet Count 315 130-400 K/uL Mean Platelet Volume 10.2 7.5-10.5 fL Nucleated Red Blood Cells 0.0 0.0-0.19 % Chemistry Labs: Test 06/23/24 11:33 06/23/24 04:17 06/22/24 10:51 Range/Units Whole Blood Glucose 127 H 70-110 MG/DL Bedside Glucose Comment Notified Nurse Sodium Level 130 L 136-145 mmol/L Potassium Level 4.2 3.5-5.1 mmol/L Chloride Level 94 L 101-111 mmol/L Carbon Dioxide Level 29 21-32 mmol/L Blood Urea Nitrogen 23 H 7-18 mg/dL Creatinine 0.7 0.5-1.3 mg/dL Glomerular Filtration Rate Calc 113 >90 mL/min Random Glucose 126 H 70-105 mg/dL Total Calcium 8.3 L 8.5-10.1 mg/dL Magnesium Level 2.00 1.80-2.40 mg/dL Total Bilirubin 0.3 0.2-1.0 mg/dL Aspartate Amino Transf (AST/SGOT) 40 H 10-37 U/L Alanine Aminotransferase (ALT/SGPT) 27 12-78 U/L Alkaline Phosphatase 145 H 50-136 U/L Total Protein 6.8 6.0-8.3 g/dL Albumin 2.6 L 3.5-5.0 g/dL Procalcitonin < 0.05 L 0.05-0.5 ng/mL Thyroid Stimulating Hormone (TSH) 4.87 H 0.36-3.74 uIU/mL DIAGNOSTICS / RADIOLOGY RESULTS: na PLAN CT scan was reviewed by supervising physician no evidence of pneumonia, and with negative protocol and no white count no antibiotics are recommended upon discharge Follow up procalcitonin level, profile negative Continue with current IV antibiotics Continue to monitor respiratory status and maintain adequate oxygenation Keep O2 sats greater or equal to 90% Aspiration precautions Rest of the care per primary team NEURO: Minimize central acting medications as possible. Maintain fall precautions, adequate lighting during the day PULMONARY: Supplemental 02 as needed. Maintain aspiration precautions at all times CARDIOVASCULAR: Follow hemodynamics. Vital signs per facility protocol GI & NUTRITION: Continue with nutritional support. Continue stool softeners and laxatives as needed. KIDNEYS & ELECTROLYTES: Strict monitoring of intake, output and overall fluid balance. Avoid nephrotoxic medications to the extent possible. Medications to be dosed according to renal function. Monitor electrolytes and replace as needed ENDOCRINE: Maintain blood glucose between 100-180 at all times. Hypoglycemia protocol in place INFECTIOUS DISEASE: Trend temperature, WBC and procalcitonin level Follow cultures, deescalate antibiotics as soon as possible. Panculture if new onset fever ONCOLOGY/HEMATOLOGY/COAGULATION: Monitor for s/s of bleeding Monitor hemoglobin, coagulation studies as needed SKIN: Pressure ulcer prevention per facility protocol Specialty mattress ORTHO/REHAB: Continue PT/OT Prophylaxis: Continue GI and DVT prophylaxis Code Status: Full Resuscitation Disposition: Per primary team Other: Case discussed with supervising physician plan of care agreed upon ERICKA TENA Jun 23, 2024 13:54
--- NOTE | 2024-06-23 14:10 | DS ---
Discharge Summary Hospital Course Summary: 48-year-old male, with a Down syndrome, [facility] with [facility] caregiver, secondary to small decubitus ulcer to the sacral area that has been present for several weeks. Patient has been at [facility] and was discharged home with antibiotics and mupirocin, he then saw his primary care doctor who was going to refer him to wound care, however did not get around to do this, they decided to bring him to [facility] for further evaluation. During the course of the hospitalization patient evaluated by Wound Care, recomm endations follow up. Chest x-ray followed by CTA possible pneumoniae, patient placed on broad-spectrum IV antibiotics, serology test negative, pulmonary consultation requested, recommendations were followed, okay for the patient to be discharged home today, afebrile, saturating normal on room air, at baseline mental status. Assessment/Plan: Problem list Possible bilateral pneumonia Hyponatremia, POA Sacral wound, POA Hypothyroidism, POA Seizure disorder, POA Dysphagia s/p PEG tube placement, POA Down's Syndrome, POA Discharge Instructions: [facility] Home Medications: Active Scripts Mupirocin (Mupirocin Ointment) 2 % Oint, 1 APPL TP TID for 30 Days, #15 GM 1 Refill apply to affected area(s) Prov:FELIPE JAY MD 06/21/24 Honey (Medihoney) 100 % Paste..ml., 0 APPL TP DAILY for 30 Days, #1 PACK 1 Refill APPLY TOPICAL TO THE WOUND Prov:FELIPE JAY MD 06/21/24 Reported Medications Melatonin (Melatonin) 5 Mg Tablet, 5 MG PO HS, TAB 06/17/24 Montelukast Sodium (Singulair) 10 Mg Tablet, 10 MG PO HS, TAB 06/17/24 Clotrimazole (Clotrimazole) 1 % Cream..g., 1 APPL TP BID for 7 Days, #15 GM 0 Refills apply to affected area(s) 06/17/24 Levetiracetam (Keppra) 100 Mg/Ml Solution, 15 ML PO BID for 30 Days, #300 ML 0 Refills 06/17/24 Sodium Chloride (Sodium Chloride) 1,000 Mg Tab, 2 TAB PO BID for 30 Days, #60 TAB 0 Refills 06/17/24 Sennosides/Docusate Sodium (Senna-Time S Tablet) 8.6 Mg-50 Mg Tablet, 1 EACH PO DAILY, TAB 06/17/24 Hydroxyzine HCl (Hydroxyzine HCl) 25 Mg Tablet, 1 TAB PO TID for anxiety for 30 Days, #90 TAB 0 Refills 06/17/24 Trazodone HCl (Trazodone HCl) 50 Mg Tablet, 1 TAB PO HS for 30 Days, #30 TAB 0 Refills 06/17/24 Linaclotide (Linzess) 145 Mcg Capsule, 1 CAP PO DAILY for 30 Days, #30 CAP 0 Refills 06/17/24 Cetirizine HCl (Cetirizine HCl) 10 Mg Tablet, 1 TAB PO DAILY for allergy symptoms for 30 Days, #30 TAB 0 Refills 06/17/24 Pantoprazole Sodium (Pantoprazole Sodium) 40 Mg Tablet.dr, 1 TAB PO DAILY for 30 Days, #30 TAB 0 Refills 06/17/24 Tamsulosin HCl (Flomax) 0.4 Mg Cap.er.24h, 0.4 MG PO HS, CAPSULE.DR 06/17/24 Alendronate Sodium (Alendronate Sodium) 70 Mg Tablet, 1 TAB PO QWEEK for on sundays for 28 Days, #4 TAB 0 Refills in the morning, at least 30 minutes before the first food, beverage, or medication of the day 06/17/24 Cyanocobalamin (Vitamin B-12) (Vitamin B12) 1,000 Mcg Tablet, 1000 MCG PO DAILY, TAB 06/17/24 Eslicarbazepine Acetate (Aptiom) 400 Mg Tablet, 1 TAB PO BID for 30 Days, #30 TAB 0 Refills 06/17/24 Atorvastatin Calcium (LIPITOR) 40 Mg Tablet, 1 TAB PO DAILY for 30 Days, #30 TAB 0 Refills 06/17/24 Calcium Carb & Cit/Vitamin D3 (Calcium + D3 ER Tablet) 600MG-12.5 Tablet.er, 1 EACH PO DAILY, TAB 06/17/24 Folic Acid (Folvite) 1 Mg Tab, 1 TAB PO DAILY for 30 Days, #30 TAB 0 Refills 06/17/24 Levothyroxine Sodium (Levothyroxine) 50 Mcg Capsule, 1 CAP PO DAILY for 30 Days, #30 CAP 0 Refills 06/17/24 Glycopyrrolate (Glycopyrrolate) 2 Mg Tablet, 1 TAB PO DAILY for 30 Days, #30 TAB 0 Refills 06/17/24 Mupirocin Calcium (Mupirocin) 2 % Cream..g., 1 APPL TP TID for 10 Days, #30 GM 0 Refills 06/17/24 Levetiracetam (Levetiracetam) 1,000 Mg Tablet, 1500 MG PEG BID, TAB 06/13/22 Clotrimazole (Lotrimin 1% Cream) 1 Appl/Gm Crm, 1 APPL TP BID, APPL 06/13/22 Montelukast Sodium (Montelukast Sodium) 10 Mg Tablet, 10 MG PEG HS, TAB 06/13/22 Melatonin (Melatonin) 5 Mg Capsule, 5 MG PEG HS, CAP 06/13/22 Atorvastatin Calcium (LIPITOR) 40 Mg Tablet, 40 MG PEG ACBKFST, TAB 06/13/22 Eslicarbazepine Acetate (Aptiom) 800 Mg Tablet, 800 MG PO BID, TAB 06/13/22 Time spent arranging discharge: 31-60 minutes FELIPE JAY MD Jun 23, 2024 14:10
[2024-06-23 14:55] VITALS: O2SAT 98
--- NOTE | 2024-06-23 15:30 | NUR ---
[facility] Follow-up: Patient re-assessed by wound healing team. Assessment and recommendations provided to primary nurse, continue with current wound care management. Education provided. Addendum: 06/23/24 at 1531 by HERMILO BELL RN RN/ Amended: Links added.
--- NOTE | 2024-06-23 17:22 | PN ---
FOLLOWUP PROGRESS NOTE SUBJECTIVE: A 48-year-old male with a history of Down syndrome. The patient initially admitted to the hospital and found to have sacral decubiti. The patient was noted to have significant hyponatremia in the hospital, which has gradually improved. The patient does tolerate the feedings and he is being seen as a followup visit for all of the above. REVIEW OF SYSTEMS: He is unable to give any review of systems. PHYSICAL EXAMINATION: VITAL SIGNS: Blood pressure 120/74, pulse in the 80s, afebrile. GENERAL: He is a chronically ill male, older than appearing. HEENT: Head is atraumatic. Pupils equal, roving to light. Oropharynx is without exudate. Nares clear. NECK: There is no JVP. There is no thyromegaly, no mass. CARDIOVASCULAR: Regular. There is no S3, S4 gallop. LUNGS: Coarse with equal thoracic movement. ABDOMEN: Soft, nondistended, nontender. EXTREMITIES: Reveal no clubbing, no cyanosis. NEUROLOGIC: He is unchanged. LABORATORY DATA: Sodium 138, potassium 4.2, BUN 23, creatinine 0.7. Hemoglobin 10, hematocrit 31. IMPRESSION: * Hyponatremia. * Sacral decubiti. * Diabetes mellitus. * Aspiration, status post percutaneous endoscopic gastrostomy. PLAN: The patient's serum sodium continues to slowly improve. The patient's water boluses have been limited. He does tolerate the feedings without difficulty. The patient can safely be discharged from a renal standpoint. If the patient is discharged, he can follow up in the [facility]. TID: [id number] RECEIPT: [id number]
--- NOTE | 2024-06-23 17:47 | NUR ---
DISCHARGE PIV DC'D, PT HAD WOUND DRESSING CHANGED BEFORE LEAVING FACILITY. REVIEWED DISCHARGE INSTRUCTIONS, MEDICATIONS, AND FOLLOW UP APPOINTMENTS WITH THE PT AND CAREGIVER. PT IS LEAVING FACILITY VIA WHEELCHAIR.
[2024-06-25] MEDS ORDERED: ALENDRONATE SODIUM 35 MG TAB PO SCH (06:30)
== END 2024-06-23 16:49 | disposition home or self-care (01) | DRG 592 ==
LOC: EDH 16:09 → EDHIP 18:26 → 3BH 21:15
PROVIDERS: ADMIT Internal Medicine; ATTEND Internal Medicine
DX: L89.302 Pressure ulcer of unspecified buttock, stage 2 (principal); J18.9 Pneumonia, unspecified organism; E22.2 Syndrome of inappropriate secretion of antidiuretic hormone; G40.909 Epilepsy, unspecified, not intractable, without status epilepticus; F32.A Depression, unspecified; E78.00 Pure hypercholesterolemia, unspecified; K21.9 Gastro-esophageal reflux disease without esophagitis; E11.9 Type 2 diabetes mellitus without complications; Z20.822 Contact with and (suspected) exposure to COVID-19; R13.10 Dysphagia, unspecified; E03.9 Hypothyroidism, unspecified; Z93.1 Gastrostomy status; Z79.899 Other long term (current) drug therapy
CPT/HCPCS: 36415; 71045; 71250; 80048; 80053; 81003; 82570; 82948; 83605; 83735; 83930; 83935; 84100; 84145; 84300; 84443; 85025; 85027; 87040; 87070; 87426; 87804; 87880; 96360; 99285; G0378; J0456; J0696; A4510